=== PATIENT | male | born 1980 | race Caucasian/White ===

== ENCOUNTER 2019-04-07 14:31 | Outpatient (CLI) | payer OTHER, SELFPAY ==
--- NOTE | 2019-04-07 14:37 | XRR_ITS ---
PROCEDURE INFORMATION: Exam: XR Cervical Spine, 2 or 3 Views Exam date and time: 04/07/2019 2:44 PM Age: 38 years old Clinical indication: Neck pain; Additional info: Pain/cervical disc disorder w/radiculopathy of cspine region TECHNIQUE: Imaging protocol: XR of the cervical spine, 2 or 3 views. COMPARISON: No relevant prior studies available. FINDINGS: Vertebrae: Mild C5-C6 degenerative disc disease and spondylosis. Soft tissues: Normal. XR/XR cervical spine fl/ex [id number] IMPRESSION: Mild C5-C6 degenerative disc disease and spondylosis.
== END 2019-04-07 14:32 | disposition home or self-care (01) ==
PROVIDERS: Family Provider Nurse Practitioner; PCP Nurse Practitioner; Visit Provider Orthopaedic Surgery
DX: M50.10 Cervical disc disorder with radiculopathy, unspecified cervical region (principal); M47.892 Other spondylosis, cervical region
CPT/HCPCS: 72040

== ENCOUNTER → 2019-06-24 08:56 | Outpatient (BNVA) | payer OTHER, SELFPAY | PROVIDERS: Family Provider Nurse Practitioner; PCP Nurse Practitioner; Referring Provider Nurse Practitioner; Visit Provider Psychiatry & Neurology Neurology | DX: M79.601 Pain in right arm (principal); F17.220 Nicotine dependence, chewing tobacco, uncomplicated | CPT/HCPCS: 95886; 95910 ==

== ENCOUNTER 2022-11-23 11:49 | Outpatient (CLI) | payer OTHER, SELFPAY ==
[2022-11-23 12:08] VITALS: BMI 29.5
--- NOTE | 2022-11-23 12:11 | ECG_ITS ---
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 Interpretive Statements NAME OF STUDY: TREADMILL STRESS TEST INDICATION: Chest Pain, PROCEDURE: At the baseline, the patient's blood pressure was 131/90 with a heart rate of 99. The baseline electrocardiogram showed normal sinus rhythm with some nonspecific T wave changes. The patient exercised for 10 minutes on a standard [employer] protocol. Patient attained a maximum heart rate of 180 beats per minute(101% of the maximum predicted heart rate) with a blood pressure at the peak exercise of 121/60 mm Hg. The EKG at the peak exercise revealed no significant changes. Patient did not have any chest pain or any significant cardiac arrhythmias with the exercise During the recovery phase, there were no new changes. Blood pressure at the end of the recovery phase was 122/78 mm Hg with a heart rate of 109 per minute. CONCLUSION: 1. No significant EKG changes with the treadmill exercise 2. No exercise-induced chest pain or cardiac arrhythmia 3. Good exercise tolerance, attained a maximum of 13.5 METs Electronically Signed On 11-24-2022 10:32:35 CDT by Romie Christianson M.D. [email or web address]
[2022-11-23 12:46] VITALS: BP 122/79; PULSE 108
== END 2022-11-23 11:50 | disposition home or self-care (01) ==
LOC: CDL 11:50
PROVIDERS: PCP Nurse Practitioner; Visit Provider Nurse Practitioner
DX: R07.9 Chest pain, unspecified (principal)
CPT/HCPCS: 93017

== ENCOUNTER → 2024-01-15 09:36 | Outpatient (BNVA) | payer OTHER, SELFPAY | PROVIDERS: PCP Nurse Practitioner; Referring Provider Nurse Practitioner; Visit Provider Nurse Practitioner Family | DX: D48.5 Neoplasm of uncertain behavior of skin (principal); L57.0 Actinic keratosis; L56.8 Other specified acute skin changes due to ultraviolet radiation; L82.1 Other seborrheic keratosis | CPT/HCPCS: 11104; 17000; 99203 ==

== ENCOUNTER → 2024-01-25 08:45 | Outpatient (BNVA) | payer OTHER, SELFPAY | PROVIDERS: PCP Nurse Practitioner; Visit Provider Dermatology | DX: D48.5 Neoplasm of uncertain behavior of skin (principal); L21.8 Other seborrheic dermatitis | CPT/HCPCS: 11104; 99213 ==

== ENCOUNTER 2024-04-02 14:38 | Outpatient (CLI) | payer OTHER, SELFPAY ==
--- NOTE | 2024-04-02 14:43 | CT_ITS ---
WS: [id number] CT neck w con* [id number] REASON FOR EXAM: DYSPHAGIA IV CONTRAST ADMINISTERED: 100 mL of Omnipaque 350 TOTAL EXAM DLP: 227.[address] scans at [facility] use at least one of these dose optimization techniques: automat ed exposure control; mA and/or kV adjustment per patient size (includes targeted exams where dose is matched to clinical indication); or iterative reconstruction. TECHNIQUE: Multiple axial images with intravenous contrast. Coronal and sagittal reconstructions. FINDINGS: Normal thyroid gland without significant enlargement or focal lesion. Glottic and supraglottic regions are normal. Normal submandibular or sublingual and parotid salivary glands. Normal epiglottis. No mass or adenopathy. Mild degenerative spondylosis C5-C7. CT/CT neck w con* [id number] IMPRESSION: No significant abnormality.
[2024-04-02] MEDS: iohexol 350 mg/mL 500 mL Btl (per mL) IV (15:24)
== END 2024-04-02 14:39 | disposition home or self-care (01) ==
LOC: RAD 14:39
PROVIDERS: PCP Nurse Practitioner; Visit Provider Otolaryngology
DX: R13.14 Dysphagia, pharyngoesophageal phase (principal); K21.9 Gastro-esophageal reflux disease without esophagitis; R09.89 Other specified symptoms and signs involving the circulatory and respiratory systems; M47.892 Other spondylosis, cervical region
CPT/HCPCS: 70491

== ENCOUNTER 2024-04-14 09:03 | Outpatient (CLI) | payer OTHER, SELFPAY ==
--- NOTE | 2024-04-14 09:05 | FL_ITS ---
WS: [id number] Exam: FL barium swallow [id number] Date/Time of Exam: 04/14/2024 9:09 AM Reason For Exam: DYSPHAGIA Fluoroscopy time: 1min 14.458001nmq minutes # of spot films: Oropharyngeal phase of swallowing was normal. No indication of esophageal stricture or mass. Normal e sophageal motility. The esophagus is not displaced. No gastroesophageal reflux or hiatal hernia noted . FL/FL barium swallow [id number] IMPRESSION: 1. Negative esophagram.
== END 2024-04-14 09:04 | disposition home or self-care (01) ==
LOC: RAD 09:03
PROVIDERS: PCP Nurse Practitioner; Visit Provider Otolaryngology
DX: R13.14 Dysphagia, pharyngoesophageal phase (principal); K21.9 Gastro-esophageal reflux disease without esophagitis; R09.89 Other specified symptoms and signs involving the circulatory and respiratory systems
CPT/HCPCS: 74220

== ENCOUNTER 2024-11-04 12:08 | Emergency (ER) | payer OTHER, SELFPAY ==
--- OUTSIDE RECORDS SUMMARY | 2023-11-15 08:00 | XMS_ITS | Encounter Summary ---
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 Date/Time Encounter Type Encounter Description Reason Provider Source Nov 15, 2023 01:00 PM Outpatient Encounter PRIMARY CARE/MEDICINE ICD-10-CM Z00.00 Encntr for general adult medical exam w/o abnormal findings HENRIETTA SEALS Encounter Template Text not used by NH Assessments - Encounter Diagnoses This section includes the primary and secondary diagnoses documented for the Encounter. Date/Time Primary/Secondary Diagnosis Diagnosis Name Provider Source Nov 15, 2023 07:07 PM PRIMARY Encntr for general adult medical exam w/o abnormal findings KRYSTIN SEALS [facility] Nov 15, 2023 07:07 PM SECONDARY Ankylosing spondylitis of multiple sites in spine [facility] Nov 15, 2023 07:07 PM SECONDARY Gastro-esophageal reflux disease without esophagitis [facility] Nov 15, 2023 07:07 PM SECONDARY Obstructive sleep apnea (adult) (pediatric) [facility]RYSTIN SE[facility] Nov 15, 2023 07:07 PM SECONDARY Vitamin D deficiency, unspecified KRYSTIN SEALS [facility] Plan of Treatment: Future Appointments (+ 6 months) and Future Tests (+/- 45 days) The Plan of Treatment section includes future care activities for the patient from all [facility]. This section includes future appointments and future orders which are active, pending or scheduled. Future Appointments This section includes appointments that were scheduled to occur 6 months from the date of the Encounter, up to a maximum of 20 appointments. The data comes from all NH treatment facilities. Appointment Date/Time Appointment Type Appointme nt Facility Name Jan 15, 2024 10:00 AM AMBULATORY - MEDICINE [facility] [facility] [facility] Feb 27, 2024 11:15 AM AMBULATORY MEDICINE [facility] May 14, 2024 09:30 AM [facility] Lab Results: +/- 30 days of the encounter This section includes the Chemistry and Hematology Lab Results on record with NH for the patient. Radiology Reports and Pathology Reports are provided separately, in subsequent sections. Lab Results This section contains the Chemistry/Hematology Results that were resulted 30 days before or 30 daysafter the date of the Encounter. Date/Time Source Result Type Result - Unit Interpretation Reference Range Specimen Type Comment Nov 15, 2023 02:04 PM [facility] TSH (MA-PB) SERUM Specimen Type: SERUM No comment entered. Ordering Provider: RICH SEALS Report Released Date/Time: Nov 13, 2023 03:48 PM Reporting Lab: [facility] [facility] [address] [place] [address] Performing Lab: [facility] [facility] [address] [place] [address] TSH 1.233 u[IU]/mL 0.47-5 Nov 15, 2023 02:04 PM [facility] VITAMIN D, 25-HYDROXY SERUM Specimen Type: SE RUM No comment entered. Ordering Provider: RICH SEALS Report Released Date/Time: Nov 13, 2023 03:48 PM Reporting Lab: [facility] [facility] [address] [place] [address] Performing Lab: [facility] [facility] [address] [place] [address] VITAMIN D, 25-HYDROXY 15.6 ng/mL L 30-96 Nov 15, 2023 02:04 PM [facility] URINALYSIS (STL-PB) URINE Specimen Type: URIN E No comment entered. Ordering Provider: RICH SEALS Report Released Date/Time: Nov 13, 2023 03:48 PM Reporting Lab: [facility] [facility] [address] [place] [address] Performing Lab: [facility] [facility] [address] [place] [address] URINE COLOR Colorless Yellow U.BILIRUBIN NEGATIVE mg/dL Negative U.PH 6.0 5.0-8.0 APPEARANCE CLEAR Clear U.NITRITE NEGATIVE mg/dL Negative URN.GLUCOSE NORMAL mg/dL Negative URN.PROTEIN NEGATIVE mg/dL Negative-20 URN.UROBILINOGEN NORMAL mg/dL Normal URN.BLOOD NEGATIVE mg/dL Negative-Trace URN.KETONES NEGATIVE mg/dL Negative-Trac e URN.LEUK.EST. NEGATIVE Negative-Trace URN.SPECIFIC GRAVITY 1.011 1.005-1.029 Nov 15, 2023 02:04 PM [facility] HGA1C BLOOD Specimen Type: BLOOD No comment entered. Ordering Provider: RICH SEALS Report Released Date/Time: Nov 13, 2023 03:48 PM Reporting Lab: [facility] [facility] [address] [place] [address] Performing Lab: [facility] [facility] [address] [place] [address] HGA1C 5.5 4.0-6.0 Nov 15, 2023 02:04 PM [facility] CBC BLOOD Specimen Type: BLOOD No comment entered. Ordering Provider: RICH SEALS Report Released Date/Time: Nov 13, 2023 03:48 PM Reporting Lab: [facility] [facility] [address] [place] [address] Performing Lab: [facility] [facility] [address] [place] [id number] WBC 8.1 10*3/uL 3.6-11.2 RBC 4.81 10*6/uL 4.10-5.70 HGB 15.2 g/dL 13.1-16.8 HCT 44.3 38.2-48.4 MCV 92.1 fL 80.0-100.0 MCH 31.6 pg 27.0-34.0 MCHC 34.3 g/dL 33.0-36.0 PLT 224 10*3/uL 150-400 MPV 11.2 fL 7.5-11.2 RDW 12.8 11.8-15.1 LYMPHOCYTES, AUTO % 22.3 MONOCYTES, AUTO % 7.2 NEUTROPHILS, AUTO % 68.5 EOSINOPHILS, AUTO % 0.9 BASOPHILS, AUTO % 0.6 LYMPHOCYTES, ABSOLUTE 1.81 10*3/uL 0.77- 4.50 MONOCYTES, ABSOLUTE 0.58 10*3/uL 0.19-0. 8 NEUTROPHILS, ABSOLUTE 5.55 10*3/uL 2.10- 8.00 EOSINOPHILS, ABSOLUTE 0.07 10*3/uL 0.00- 0.60 BASOPHILS, ABSOLUTE 0.05 10*3/uL 0.00-0. 20 IMMATURE GRANS, AUTO % 0.5 IMMATURE GRANS, AUTO ABS 0.04 10*3/uL 0. 00-0.05 Nov 15, 2023 02:04 PM [facility] CHOLESTEROL PANEL (PB) PLASMA Specimen Type: P LASMA No comment entered. Ordering Provider: RICH SEALS Report Released Date/Time: Nov 13, 2023 03:48 PM Reporting Lab: [facility] [facility] [address] [place] [address] Performing Lab: [facility] [facility] [address] [facility] [facility] [address] CHOLESTEROL 264 mg/dL H 0-200 TRIGLYCERIDE 122 mg/dL 0-150 CALCULATED LDL 186.6 mg/dL HDL(New) 53.0 mg/dL H >40 HDL % OF TOTAL CHOLESTEROL (PB) 20.1 >25 Nov 15, 2023 02:04 PM [facility] PROST. SPECIFIC AG.(PB-STL) SERUM Specimen Ty pe: SERUM No comment entered. Ordering Provider: RICH SEALS Report Released Date/Time: Nov 13, 2023 03:48 PM Reporting Lab: [facility] [facility] [address] [place] [address] Performing Lab: [facility] [facility] [address] [place] [address] PROST. SPECIFIC AG.(PB-STL) 0.94 ng/mL 0 -4 Nov 15, 2023 02:04 PM [facility] COMPREHENSIVE METABOLIC PANEL PLASMA Specimen Type: PLASMA No comment entered. Ordering Provider: RICH SEALS Report Released Date/Time: Nov 13, 2023 03:48 PM Reporting Lab: [facility] [address] [place] [address] Performing Lab: [facility] [address] [address] CREATININE 0.95 mg/dL 0.7-1.3 UREA NITROGEN 10 mg/dL 9-25 GLUCOSE 98 mg/dL 72-99 SODIUM 136 meq/L 136-145 POTASSIUM 4.1 meq/L 3.5-5 CHLORIDE 103 meq/L 98-107 CARBON DIOXIDE 24 meq/L 22-31 CALCIUM 9.2 mg/dL 8.4-10.4 PROTEIN 7.7 g/dL 6-8.6 ALBUMIN 4.8 g/dL 3.4-5 TOTAL BILIRUBIN 0.5 mg/dL 0.2-1.2 ALKALINE PHOSPHATASE 47 U/L 40-150 AST/SGOT 38 U/L H 5-34 ALT/SGPT 73 U/L H 8-40 EGFR (CKD-EPI 2020) 102 Vital Signs: All taken on the encounter date This section contains inpatient and outpatient Vital Signs collected on the date of the Encounter. Date/Time Temperature Pulse Blood Pressure Respiratory Rate SP02 Pain Height Weight Body Mass Index Source Nov 15, 2023 01:09 PM 142/93 [facility] Nov 15, 2023 01:09 PM 98.2 84 149/92 18 99 0 68 230 35 [facility] Social History: Smoking Status (Most current) and Tobacco Use (All prior to encounter date) This section includes the most current, and the historical, smoking and tobacco- related health factors from the NH facility where the Encounter took place. Current Smoking Status This section includes the most current smoking, or tobacco-related health factor, from the NH facility where the Encounter took place. Date/Time Current Smoking Status Comment Edmundo pinto Nov 15, 2023 01:00 PM VA-TOBACCO USER EVERY DAY [facility] Tobacco Use History This section includes a history of the smoking, or tobacco-related health factors, that were collected on or before the date of the Encounter. The data comes from the NH facility where the Encounter took place. 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 [facility] Nov 15, 2023 01:00 PM VA-TOBACCO USE MED NO [facility] Nov 15, 2023 01:00 PM VA-TOBACCO USE WI 30 MIN OF WAKE UP [facility] Nov 15, 2023 01:00 PM VA-TOBACCO USER EVERY DAY [facility] Nov 14, 2022 01:31 PM VA-TOBACCO USE 30 YEARS OR MORE [facility] Nov 14, 2022 01:31 PM VA-TOBACCO USE ADVICE [facility] Nov 14, 2022 01:31 PM 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 [facility] Nov 14, 2022 01:31 PM VA-TOBACCO USE MED NO [facility] Nov 14, 2022 01:31 PM VA-TOBACCO USE WI 30 MIN OF WAKE UP [facility] Nov 14, 2022 01:31 PM VA-TOBACCO USER EVERY DAY [facility] [place] [facility] Jun 04, 2018 03:27 PM VA-TOBACCO DOESNT USE WI 30 MIN WAKEUP [facility] Jun 04, 2018 03:27 PM VA-TOBACCO USE 5 TO 15 YEARS [facility] Jun 04, 2018 03:27 PM VA-TOBACCO USE ADVICE [facility] Jun 04, 2018 03:27 PM 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 Date/Time Encounter Note(s) Provider Source Nov 15, 2023 01:42 PM PRIMARY CARE PROGR ESS NOTE: LOCAL TITLE: PRIMARY CARE CLINIC PROGRESS NOTE PB STANDARD TITLE: PRIMARY CARE PROGRESS NOTE DATE OF NOTE: NOV 15, 2023@13:42 ENTRY DATE: NOV 15, 2023@13:42:44 AUTHOR: [facility] SEALS COSIGNER: URGENCY: STATUS: COMPLETED PROVIDER ASSESSMENT DATE & TIME:Oct@13:42 CHIEF COMPLAINT: Annual physical and labs. HISTORY OF PRESENT ILLNESS: James is being seen for his annual physical and labs. James was recently seen by ENT and did a swallow study. James states he has follow up with him regarding this. James was changed to pantoprazole and has a prescription for this. James used to take methotrexate for his joint pain and stopped it related to side effects. He states a low carb diet helped more with his than anything. He is contemplating starting this diet back. James has a cyst on the back of his right scalp he would like to see dermatology regarding having it removed. James is slightly hypertensive in office but states it is normal at home. He denies any home needs. 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: 1) Obstructive sleep apnea 2) Ankylosing spondylitis 3) Arthritis of facet joint of cervical spine 4) Obesity ([facility] [id number]) 5) Headache ([facility] [id number]) 6) GERD - Gastro-Esophageal Reflux Disease ([facility] [id number]) 7) Tobacco User ([facility] [id number]) 8) Vitamin D Deficiency ([facility] [id number]) 9) Exposure to potentially hazardous substance Active Outpatient Medications (including Supplies): Active Outpatient Medications Status 1) FLUTICASONE PROP 50MCG 120D NASAL INHL INSTILL 2 ACTIVE SPRAYS IN NOSTRIL(S) ONCE A DAY FOR RHINITIS (MUST BE USED DIRECTED FOR MINIMUM OF 21 DAYS TO PROVIDE ADEQUATE BENEFITS) 2) LIDOCAINE 5% PATCH APPLY 1 PATCH TO SKIN SITE ONCE A ACTIVE DAY FOR LOCAL ANESTHESIA APPLY PATCH AND PRESS FIRMLY FOR 10-15 SECONDS. KEEP ON FOR 12 HOURS THEN REMOVE PATCH FOR 12 HOURS. 3) OMEPRAZOLE 10MG EC CAP TAKE ONE CAPSULE BY MOUTH HOLD EVERY MORNING BEFORE A MEAL FOR GASTROESOPHAGEAL REFLUX DISEASE TAKE 30 MINUTES PRIOR TO FOOD. 4) OMEPRAZOLE 20MG EC CAP TAKE ONE CAPSULE BY MOUTH ACTIVE TWICE A DAY TAKE 30 MINUTES PRIOR TO FOOD. 5) SUMATRIPTAN SUCCINATE 25MG TAB TAKE ONE TABLET BY ACTIVE MOUTH ONE-TIME FOR MIGRAINE HEADACHE TAKE AT ONSET OF HEADACHE. MAY REPEAT AFTER 2 HOURS. NOT TO EXCEED 2 TABLETS IN 24 HOURS. REVIEW OF SYSTEMS: HEENT: No Headache. No blurry vision, vision loss, eye pain, red eyes, or foreign body. No runnynose, congestion, or nose bleed. No hearing loss, ringing in the ears, or vertigo. No sore throat or dental pain. RESPIRATORY: No cough, SOA, wheezing, or sputum production. CARDIOVASCULAR: No chest pain, palpitations, tachycardia, PND, or orthopnea. GI: No abdominal pain, nausea, vomiting, diarrhea, constipation, melena, or hematochezia. : No dysuria, hematuria, urinary frequency, weak stream, or post-void dribbling. MUSCULOSKELETAL:chronic joint pain. SKIN: No rash, lesions, or infection PSYCH: No Depression or Anxiety. Not suicidal. PHYSICAL ASSESSMENT: VITAL SIGNS Pulse: 84 (11/15/2023 13:09) Blood Pressure: 142/93 (11/15/2023 13:09) Respiratory Rate: 18 (11/15/2023 13:09) Temperature: 98.2 F [36.8 C] (11/15/2023 13:09) Weight: 230 lb [104.33 kg] (11/15/2023 13:09) Height: 68 in [172.7 cm] (11/15/2023 13:09) Pain: 0 (11/15/2023 13:09) HEENT:PERRL, EOMI, Fundi benign, TM's clear, Pharynx not red and without exudate, tonsils normal size. NECK: Supple, no lymhadenopathy, thyroid normal. CARDIAC: Regular rate and rhythm without murmur. No edema. RESPIRATORY: CTA, BEBS GI: Abdomen soft,with ABS, no HSM, no guarding or rebound. MUSCULOSKELETAL:No muscle or joint tenderness. FROM. SKIN: [place] without rash or lesions. 2cm diameter, soft, non-mobile cyst to right of occiptal lobe on back of scalp. NEUROLOGICAL: The [place] is alert and oriented without distress. Affect appropriate. IMPRESSION: Encounter for General Adult Medical Exam GERD-chronic Sebaceous Cyst-current Ankylosing Spondylitis-chronic Sleep Apnea-chronic PLAN: Continue current medications. Discussed diet and exercise. Will refer to Dermatology. Continue to monitor blood pressure at home. Labs today. RTC in one year or sooner if needed. Patient is advised this primary care clinic has open access and he can make a same day appointment anytime a problem/concern arises. Patient further advised he can be seen on a walk-in basis as needed. Patient is provided clinic contact information. Medications reviewed and reconciled. Discussed diet and exercise as relevant to patient conditions. Treatment plan as noted above and the After Visit Summary was reviewed with [place]; opportunity provided to report concerns and ask question regarding aspects of care or treatment or services; concurrence reached and verbalized understanding. Please refer to addendum or follow up lab letter for plan of care/changes related to lab/test results not available at conclusion of appointment, if any. Discussed with patient that in the event of community imaging / testing being ordered in the future, once the imaging / testing has been completed, please notify PACT of within 1 week by a VA PACT member; this is due to intermittent lapses in notification of imaging completion within CPR[facility]. All questions answered; agrees to plan of care. Follow up as listed above, annually, and as needed. Keep all completion at outside facility if not called with results appointments. Medications Reconciled. Time spent 30 minutes. /angel/ [facility] Signed: 11/15/2023 19:06 RICH [facility]ALS [place] [facility] Nov 15, 2023 01:10 PM PRIMARY CARE NURSI NG NOTE: LOCAL TITLE: PRIMARY CARE NURSING PROGRESS NOTE (TEXT) NURSING P STANDARD TITLE: PRIMARY CARE NURSING NOTE DATE OF NOTE: NOV 15, 2023@13:10 ENTRY DATE: NOV 15, 2023@13:10:51 AUTHOR: HEIKE CAMPBELL COSIGNER: URGENCY: STATUS: COMPLETED Established Patient KAROL TRINH IS A 42 YEAR OLD MALE BEING SEEN IN CLINIC NOV 15, 2023. = = REASON FOR VISIT: Here today for his annual appt. He reports that he was recently seen by ENT who beba fung for a Swallow study. He states they told him his tonsils are not infected. Are you receiving care any where other than the [facility]? No HEALTH AND SURGICAL HISTORY: Does patient report using home oxygen? No CURRENT ACTIVE MEDICATIONS FOR REVIEW: Allergies/ADRs (Tool #5) FACILITY ALLERGY/ADR -------- [facility] No Known Allergies Med. Reconciliation (Tool #1) INCLUDED IN THIS LIST: Alphabetical list of active outpatient prescriptions dispensed from this NH (local) and dispensed from another NH or DoD facility (remote) as well as inpatient orders (local pending and active), local clinic medications, locally documented non-VA medications, and local prescriptions that have or been discontinued in the past 90 days. Non-VA Meds Last Documented On: Data not found NOTE The display of VA prescriptions dispensed from another VA or DoD facility (remote) is limited to active outpatient prescription entries matched to National Drug File at the originating site and may not include some items such as investigational drugs, compounds, etc. NOT INCLUDED IN THIS LIST: Medications self-entered by the patient into personal health records (i.e. zappit) are NOT included in this list. Non-VA medications documented outside this NH, remote inpatient orders (regardless of status) and remote clinic medications are NOT included in this list. The patient and provider must always discuss medications the patient is taking, regardless of where the medication was dispensed or obtained. OUTPT CETIRIZINE HCL 10MG TAB (Status = ) TAKE ONE TABLET BY MOUTH ONCE A DAY FOR ALLERGY SYMPTOMS Rx# [id number] Last Released: 07/25/23 Qty/Days Supply: Rx Expiration Date: 10/22/23 Refills Remainin Indication: FOR ALLERGY SYMPTOMS OUTPT FLUTICASONE PROP 50MCG 120D NASAL INHL (Status = Active) INSTILL 2 SPRAYS IN NOSTRIL(S) ONCE A DAY FOR RHINITIS (MUST BE USED DIRECTED FOR MINIMUM OF 21 DAYS TO PROVIDE ADEQUATE BENEFITS) Rx# [id number] Last Released: 07/27/23 Qty/Days Supply: Rx Expiration Date: 07/24/24 Refills Remainin Indication: FOR RHINITIS OUTPT LIDOCAINE 5% PATCH (Status = Active) APPLY 1 PATCH TO SKIN SITE ONCE A DAY FOR LOCAL ANESTHESIA APPLY PATCH AND PRESS FIRMLY FOR 10-15 SECONDS. KEEP ON FOR 12 HOURS THEN REMOVE PATCH FOR 12 HOURS. Rx# [id number] Last Released: 11/22/22 Qty/Days Supply: Rx Expiration Date: 11/16/23 Refills Remainin Indication: FOR LOCAL ANESTHESIA OUTPT OMEPRAZOLE 10MG EC CAP (Status = On Hold) TAKE ONE CAPSULE BY MOUTH EVERY MORNING BEFORE A MEAL FOR GASTROESOPHAGEAL REFLUX DISEASE TAKE 30 MINUTES PRIOR TO FOOD. Rx# [id number] Last Released: 11/17/22 Qty/Days Supply: Rx Expiration Date: 11/16/23 Refills Remainin Indication: FOR GASTROESOPHAGEAL REFLUX DISEASE OUTPT OMEPRAZOLE 20MG EC CAP (Status = Active) TAKE ONE CAPSULE BY MOUTH TWICE A DAY TAKE 30 MINUTES PRIOR TO FOOD. Rx# [id number] Last Released: 10/27/23 Qty/Days Supply: Rx Expiration Date: 10/26/24 Refills Remainin OUTPT SUMATRIPTAN SUCCINATE 25MG TAB (Status = Active) TAKE ONE TABLET BY MOUTH ONE-TIME FOR MIGRAINE HEADACHE TAKE AT ONSET OF HEADACHE. MAY REPEAT AFTER 2 HOURS. NOT TO EXCEED 2 TABLETS IN 24 HOURS. Rx# [id number] Last Released: 11/17/22 Qty/Days Supply: Rx Expiration Date: 11/16/23 Refills Remainin Indication: FOR MIGRAINE HEADACHE SUPPLIES PHARMACY TERMS AND POSSIBLE PATIENT ACTIONS INPT = NH inpatient order IV = NH intravenous medication OUTPT = NH outpatient prescription PHARMACY POSSIBLE PATIENT TERMS EXPLANATION ACTIONS -------- ---- ACTIVE A prescription that can be If you have refills, filled at the local NH pharmacy. you may request a refill of this prescription from your NH pharmacy. CLINIC A medication you received during If you have questions a visit to a NH clinic or about this medication emergency department. contact your NH healthcare team. DISCONTINUED A prescription your provider has Contact your VA stopped. It is no longer healthcare team if you available to be sent to you or need more of this picked up at the NH pharmacy medication. window. A prescription which is too old Contact your VA to fill. This does not refer to healthcare team if you the expiration date of the need more of this medication in the container. medication. NON-VA A medication that came from If this medication someplace other than a VA information is pharmacy. This may be a incorrect or out of prescription from either the VA date, please tell your or non VA providers that was VA healthcare team. filled outside the VA. Or, it may be an htco-efi-usyjprc (OTC), herbal, dietary supplements or sample medication. ON HOLD An active prescription that will Contact your VA not be filled until pharmacy pharmacy when you need resolves the issue. more of this medication. PARKED An active prescription that will Contact your VA not be filled until the patient pharmacy when you need requests it. this medication. PENDING This prescription order has been If you have been sent to the pharmacy for review instructed to start and is not ready yet. this medication now, contact your VA pharmacy. SUSPENDED An active prescription that is Contact your VA not scheduled to be filled yet. pharmacy if you need You should receive it before this medication now. you run out. Patient reports taking medications as ordered. IS PATIENT TAKING ANY OVER THE COUNTER MEDICATIONS, SUCH VITAMINS OR HERBAL SUPPLEMENTS, INCLUDING ANY MEDICATIONS PRESCRIBED BY ANOTHER PHYSICIAN? No ALLERGIES/ADVERSE REACTIONS: Patient has answered NKA Does patient have any new allergies to report since last visit? NO VITALS: TEMPERATURE: 98.2 F [36.8 C] (11/15/2023 13:09) BP: 142/93 (11/15/2023 13:09) RESP: 18 (11/15/2023 13:09) PULSE: 84 (11/15/2023 13:09) HT: 68 in [172.7 cm] (11/15/2023 13:09) WT: 230 lb [104.33 kg] (11/15/2023 13:09) BMI: 35.0 PAIN ASSESSMENT: (Most Recent Pain Score in Vitals Package: 0 (11/15/2023 13:09) ) The patient indicated that they and their close contacts have not traveled outside of the [place] in the past 21 days. The patient reports the following symptoms: No symptoms present The patient is not immunocompromised. The patient does not report having a history of Multi Drug Resistant Organism (MDRO) within the last five years. The patient does not report having been exposed to measles, chickenpox, or zoster in last 30 days. Patient reports no pain at this visit. Pain Score = 0. STRESS: Thank you for your service. Now let us serve you. At the [facility], we strive to provide you with exceptional health care that improves your health and well-being. Are you feeling sad, empty, or depressed? No Do you need to talk about things in your life that worry you or cause you stress? No Do you need to talk about personal problems, family problems, alcohol use, drug use, or mental or emotional illness? No SUICIDE SCREENING: The patient was asked, Over the past two weeks, how often have you been bothered by thoughts that you would be better off or of hurting yourself in some way? Not At All SPIRITUAL ASSESSMENT: Are there roman catholic practices or spiritual concerns you want the supervisor cereal, your physician, and other health care team members to immediately know about? No Patient advised to call the clinic for any concerns, questions, or symptoms. Patient and/or caregiver verbalized understanding of plan of care. Suicide Screen: C-SSRS Screening [place]-Suicide Severity Rating Scale (C-SSRS Screener) 1. Over the past month, have you wished you were or wished you could go to sleep and not wake up? No 2. Over the past month, have you had any actual thoughts of killing yourself? No 3. Over the past month, have you been thinking about how you might do this? Response not required due to responses to other questions. 4. Over the past month, have you had these thoughts and had some intention of acting on them? Response not required due to responses to other questions. 5. Over the past month, have you started to work out or worked out the details of how to kill yourself? Response not required due to responses to other questions. 6. If yes, at any time in the past month did you intend to carry out this plan? Response not required due to responses to other questions. 7. In your lifetime, have you ever done anything, started to do anything, or prepared to do anything to end your life (for example, collected pills, obtained a gun, gave away valuables, went to the roof but didn't jump)? No 8. If YES, was this within the past 3 months? Response not required due to responses to other questions. Sexual Orientation: The patient thinks of their sexual orientation as: Straight or Heterosexual RHS Screen: RHS Screen Session Format: Face to Face Environmental Check Upon inquiry, the individual reports that the environment is safe to proceed. Informed Consent to Screen and Document The individual consents to proceed with screening. The individual consents to documentation of responses. PRIMARY SCREEN: In the past 12 months, how often did a current or former intimate partner (e.g., boyfriend, girlfriend, , , sexual partner): 1. Scream or curse at you Never 2. Insult or talk down to you Never 3. Threaten you with harm Never 4. Physically hurt you Never 5. Force or pressure you to have sexual contact against your will, or when you were unable to say no Never The HITS tool (items 1-4 above) is [place] copyright protected by Oren Aquino MD, and the user has full rights to use it throughout the [place] system. PRIMARY SCREEN RESULT: The Primary Screen is NEGATIVE. The individual answered never to all forms of IPV above (i.e., answered never to all 5 items) The individual accepts education and/or resources: No EDUCATION: Other: na COVID-19 Immunization: Refused Moderna Monovalent COVID-19 vaccine Immunization: COVID-19 (MODERNA), MRNA, LNP-S, PF, 50 MCG/0.5 ML (AGES 12+ YEARS) Refusal Reason: PATIENT DECISION Patient refuses all immunization(s) in the COVID-19 group Date Documented: 11/15/23 13:16 Alcohol Use Screen (AUDIT-C): Alcohol Screen: SCREEN FOR ALCOHOL (AUDIT-C) An alcohol screening test (AUDIT-C) was negative (score=0). 1. How often did you have a drink containing alcohol in the past year? Consider a drink to be a 12 ounce can or bottle of regular beer, 8 ounces of malt liquor, a 5 ounce glass of table wine, or a 1.5 ounce shot of liquor (like scotch, gin, or vodka). Never 2. How many drinks containing alcohol did you have on a typical day when you were drinking in the past year? Response not required due to responses to other questions. 3. How often did you have six or more drinks on one occasion in the past year? Response not required due to responses to other questions. Depression Screening: Perform PHQ-2 A PHQ-2 screen was performed. The score was 0 which is a negative screen for depression. Over the past two weeks, how often have you been bothered by the following problems? 1. Little interest or pleasure in doing things Not at all 2. Feeling down, depressed, or hopeless Not at all Tobacco Use Screening: The patient uses tobacco every day. The patient uses tobacco within 30 minutes of waking up. The patient has been smoking or using tobacco for more than fifteen years and less than thirty years. Patient was advised to quit smoking and/or using tobacco. Discussion with patient included: - Quitting smoking or tobacco use is one of the most important things you can do to protect and improve your health and [facility] has the resources to support you. - Set a quit date when you are ready to quit. - Get support from your family and friends. - Review any past quit attempts- What helped? What didn't? - On the day you plan to quit, get rid of all cigarettes and tobacco products from your home, car or work. - Using a combination of behavioral counseling or other support strategies and FDA-approved cessation medications is the most effective way to ensure success in quitting. Patient was offered Behavioral Counseling and other support strategies to assist with quitting. Discussion with patient included: - Behavioral counseling or other support strategies greatly increases your chances of successfully quitting smoking or tobacco use by helping you develop a quit plan and providing support and other strategies to make behavioral changes to help you quit. - [facility] has a number of behavioral counseling options to help you with quitting, including: * Provide information about the facility smoking or tobacco use treatment options or clinics * [facility]'s national quitline, 6-121-LUCU-VET, with counseling available Sunday-Sunday The patient was not interested in receiving additional information about how to use the treatment options discussed. Patient was offered FDA-approved cessation medications. Discussion with patient included: - Medications for Nicotine replacement therapy such as the patch, gum or lozenge, and other medications such as varenicline or bupropion, can play an important role in the initial weeks and months after you quit smoking or tobacco use. - Medications help with cravings and withdrawal symptoms and they greatly increase your chances of successfully quitting. The patient was not interested in a prescription for tobacco cessation medications. Influenza Immunization: No influenza vaccination was received during the recent influenza season. PTSD Screening: PC-PTSD-5 A PTSD screening test (PC-PTSD-5) was negative (score=0). IN THE PAST MONTH, have you ever had any experience that was so frightening, horrible or traumatic. For example: A serious accident or fire a physical or sexual assault or abuse An earthquake or flood A war Seeing someone be killed or seriously injured Having a loved one through homicide or suicide 1. Have you ever experienced this kind of event? YES 2. Had nightmares about the event(s) or thought about the event(s) when you did not want to? NO 3. Tried hard not to think about the event(s) or went out of your way to avoid situations that reminded you of the event(s)? NO 4. Been constantly on guard, watchful, or easily startled? NO 5. [place] numb or detached from people, activities, or your surroundings? NO 6. [place] guilty or unable to stop blaming yourself or others for the event(s) or any problems the event(s) may have caused? NO Hepatitis C Testing: Patient declines HCV lab test. Advanced Directive Screen/Flagger: ADVANCE DIRECTIVE SCREENING: I asked if the patient has an advance directive, and determined that: Patient has an Advance Directive. Patient does not wish to make any changes to the Advance Directive at this time. ADVANCE DIRECTIVE NOTIFICATION I provided the patient with written notification about advance directives. Level of understanding: Pneumococcal Conjugate Vaccine (PCV15/PCV20): Refuses PCV vaccine Immunization: PNEUMOCOCCAL CONJUGATE, UNSPECIFIED FORMULATION Refusal Reason: PATIENT DECISION Patient refuses all immunization(s) in the PneumoPCV group Date Documented: 11/15/23 13:22 Pain Assessment: - PAIN ASSESSMENT: .. Patient reports no pain at this visit. Pain Score = 0. Patient's self identified pain goal: 0 VVC DIGITAL DIVIDE CAPABILITY REMINDER: Patient is not interested in VVC at this time. 'S RIGHT TO DECLINE STATEMENT understands they have the right to decline the use of Telehealth Technology at any time without adverse affects on their continued access to healthcare. [facility] - PHP MAP: PERSONAL HEALTH PLAN INVENTORY & MAP [place] Response: family /es/ HEIKE CAMPBELL LPN Signed: 11/15/2023 13:28 [facility]AMPBELL [facility]
--- OUTSIDE RECORDS SUMMARY | 2024-02-27 06:15 | XMS_ITS | Encounter Summary ---
Author Name [facility] [place] [facility] [place] [facility] [place] Address [address] [place] [id number] Care Team Providers Care Apron Operator Name Role Phone KARLA DIEHL Primary Care Provider RICH Fong Primary Care Provider Unavail able Selected Encounter This section includes the information on record at [place] for the Encounter. Date/Time Encounter Type Encounter Description Reason Provider Source Feb 27, 2024 11:15 AM OFF/OP EST JULY X REQ PHY/QHP PRIMARY CARE/MEDICINE ICD-10-CM R07.82 Intercostal pain CHERYL SCHULTZ Chris Encounter Template Text not used by [place] Assessments - Encounter Diagnoses This section includes the primary and secondary diagnoses documented for the Encounter. Date/Time Primary/Secondary Diagnosis Diagnosis Name Provider Source Feb 27, 2024 12:12 PM PRIMARY Intercostal pain PIYUSH SCHULTZ [facility] Plan of Treatment: Future Appointments (+ 6 months) and Future Tests (+/- 45 days) The Plan of Treatment section includes future care activities for the patient from all [place] treatment[place]ilities. This section includes future appointments and future orders which are active, pending or scheduled. Future Appointments This section includes appointments that were scheduled to occur 6 months from the date of the Encounter, up to a maximum of 20 appointments. The data comes from all [place] treatment facilities. Appointment Date/Time Appointment Type Appointme nt Facility Name May 14, 2024 09:30 AM AMBULATORY - MEDICINE [facility] Aug 22, 2024 01:15 PM AMBULATORY - MEDICINE [facility] Aug 22, 2024 02:45 PM AMBULATORY - MEDICINE [facility] Aug 27, 2024 11:45 AM AMBULATORY - MEDICINE [facility] Aug 27, 2024 12:15 PM AMBULATORY - MEDICINE [facility] Vital Signs: All taken on the encounter date This section contains inpatient and outpatient Vital Signs collected on the date of the Encounter. Date/Time Temperature Pulse Blood Pressure Respiratory Rate SP02 Pain Height Weight Body Mass Index Source Feb 27, 2024 11:19 AM 97.4 86 150/97 18 98 230.1 35 [facility] Social History: Smoking Status (Most current) and Tobacco Use (All prior to encounter date) This section includes the most current, and the historical, smoking and tobacco- related health factors from the [place] facility where the Encounter took place. Current Smoking Status This section includes the most current smoking, or tobacco-related health factor, from the [place] facility where the Encounter took place. Date/Time Current Smoking Status Comment Facil ity Nov 15, 2023 01:00 PM VA-TOBACCO USER EVERY DAY [facility] Tobacco Use History This section includes a history of the smoking, or tobacco-related health factors, that were collected on or before the date of the Encounter. The data comes from the [place] facility where the Encounter took place. Date/Time Smoking Status/Tobacco Use Comment F acility Nov 15, 2023 01:00 PM VA-TOBACCO USE ADVICE [facility] Nov 15, 2023 01:00 PM VA-TOBACCO USE SALON PROFESSIONAL NO [facility] Nov 15, 2023 01:00 PM VA-TOBACCO USE MED NO [facility] Nov 15, 2023 01:00 PM VA-TOBACCO USE WI 30 MIN OF WAKE UP [facility] Nov 15, 2023 01:00 PM VA-TOBACCO USER EVERY DAY [facility] Nov 14, 2022 01:31 PM VA-TOBACCO USE 30 YEARS OR MORE [facility] Nov 14, 2022 01:31 PM VA-TOBACCO USE ADVICE [facility] Nov 14, 2022 01:31 PM VA-TOBACCO USE SALON PROFESSIONAL NO [facility] Nov 14, 2022 01:31 PM VA-TOBACCO USE MED NO [facility] Nov 14, 2022 01:31 PM VA-TOBACCO USE WI 30 MIN OF WAKE UP [facility] Nov 14, 2022 01:31 PM VA-TOBACCO USER EVERY DAY [facility] Jun 04, 2018 03:27 PM VA-TOBACCO DOESNT USE WI 30 MIN WAKEUP [facility] Jun 04, 2018 03:27 PM VA-TOBACCO USE 5 TO 15 YEARS [facility] Jun 04, 2018 03:27 PM VA-TOBACCO USE ADVICE [facility] Jun 04, 2018 03:27 PM VA-TOBACCO USE SALON PROFESSIONAL NO [facility] Jun 04, 2018 03:27 PM VA-TOBACCO USE MED NO [facility] Jun 04, 2018 03:27 PM VA-TOBACCO USER SOME DAYS [facility] Radiology Reports: +/- 30 days of the encounter Radiology Reports For cases when an order for radiology services may have been completed prior to the date of the Encounter, the report list includes the Radiology Reports that were completed up to 30 days before dateof the Encounter. For cases when an order for radiology services may have been completed after the date of the Encounter, the report list also includes the Radiology Reports that were completed up to30 days after date of the Encounter. The data comes from all [place] treatment facilities. Date/Time Radiology Report Provider Source Feb 27, 2024 11:54 AM RIBS,LEFT+CHEST 3+ VIEWS: KAROL TRINH [id number] -1980 M Exm Date: FEB 27, 2024@11:54 Req Phys: RICH SEALS Loc: PB-ADRAINA PACT FOXMELONIE MARVIN (Req'g Img Loc: PB-XRAY [facility] Service: [place] [address] (Case [id number] COMPLETE) RIBS,LEFT+CHEST 3+VIEWS (RAD Detailed) CPT:25981 Proc Modifiers : LEFT Reason for Study: Left rib pain Clinical History: Report Status: Verified Date Reported: FEB 27, 2024 Date Verified: FEB 27, 2024 City Detective E-Sig: Report: Multiple views of the chest and left ribs reveal no fracture or other acute osseous abnormality. There is no infiltrate, effusion, contusion, pneumothorax or other acute intrathoracic process. Heart size is normal. Impression: No acute process Primary Interpreting Staff: ESTHER SUAZO, RADIOLOGIST (City Detective, no e-sig) /ESTHER Dhaliwal [facility] Encounter Notes: All associated encounter notes This section contains the clinical notes associated to the Encounter. Date/Time Encounter Note(s) Provider Source Feb 27, 2024 11:20 AM NURSING PROGRESS N OTE: LOCAL TITLE: NURSING NOTE PB STANDARD TITLE: NURSING PROGRESS NOTE DATE OF NOTE: FEB 27, 2024@11:20 ENTRY DATE: FEB 27, 2024@11:20:38 AUTHOR: KIARA SCHULTZ EXP COSIGNER: URGENCY: STATUS: COMPLETED This is a 43 year old MALE with known Allergies as noted: Patient has answered NKA C/C: reported to the clinic for left rib pain S: Spencer stated that below his left nipple he has a sharp/aching pain that comes and does. Spencer stated that sometimes setting a certain way hurts it. stated that riding in a car makes it hurt sometimes. stated that he has not had N/V. stated that he noticed the pain 4 days ago and it has gotten worse in the past two days. Spencer stated that he rates pain 7 out of 10. On the following Active Medications: Active Outpatient Medications (including Supplies): Active Outpatient Medications Status 1) FLUTICASONE PROP 50MCG 120D NASAL INHL INSTILL 2 ACTIVE SPRAYS IN NOSTRIL(S) ONCE A DAY FOR RHINITIS (MUST BE USED DIRECTED FOR MINIMUM OF 21 DAYS TO PROVIDE ADEQUATE BENEFITS) 2) OMEPRAZOLE 20MG EC CAP TAKE ONE CAPSULE BY MOUTH ACTIVE TWICE A DAY TAKE 30 MINUTES PRIOR TO FOOD. O: ambulated into the clinic without assistance. Alert and oriented x4. Unlabored breathing. No bruising or deformity noted to the chest. Spencer grimaced upon palpation of left anterior rib. A/P: Reviewed with Provider. EKG ordered. Left Rib Xray ordered. Provider advised that she will recommends Aleve for inflammation and she will provide with a hand written script for Flexeril. advised that the muscle relaxer can cause drowsiness and not to operate heavy machinery or drive until he knows how the medication affects him. voiced understanding. advised that he will be contacted with Xray results. advised if ribs are fractured to ensure that he is taking deep breaths to avoid pneumonia and tht the fractured rib could take up to 6 weeks to heal. voiced understanding. Spencer escorted to the lobby in stable condition. RTC: as needed /agnel/ Kiara Schultz RN [place] GARRISON, [facility] Signed: 02/27/2024 12:12 Receipt Acknowledged By: 02/27/2024 15:24 /angel/ DENNIS Good-FILIBERTO [place] bush JEANNIE RENEE [facility]
--- OUTSIDE RECORDS SUMMARY | 2024-02-27 06:24 | XMS_ITS | Encounter Summary ---
Author Name [facility] [place] Organization [facility] [place] Address [address] [place] [address] Care Team Providers Care Batch Records Clerk Name Role Phone KARLA DIEHL Primary Care Provider RICH Fong Primary Care Provider Unavail able Selected Encounter This section includes the information on record at [place] for the Encounter. Date/Time Encounter Type Encounter Description Reason Pro vider Source Feb 27, 2024 11:24 AM Outpatient Encounter PRIMARY CARE/MEDICINE IHE Encounter Template Text not used by [place] Plan of Treatment: Future Appointments (+ 6 months) and Future Tests (+/- 45 days) The Plan of Treatment section includes future care activities for the patient from all [place] treatmentfacilities. This section includes future appointments and future orders which are active, pending or scheduled. Future Appointments This section includes appointments that were scheduled to occur 6 months from the date of the Encounter, up to a maximum of 20 appointments. The data comes from all [place] treatment facilities. Appointment Date/Time Appointment Type Appointme nt Facility Name May 14, 2024 09:30 AM AMBULATORY - MEDICINE [facility] Aug 22, 2024 01:15 PM AMBULATORY - MEDICINE [facility] Aug 22, 2024 02:45 PM AMBULATORY - MEDICINE [facility] Aug 27, 2024 11:45 AM AMBULATORY - MEDICINE [facility] Aug 27, 2024 12:15 PM AMBULATORY - MEDICINE [facility] Vital Signs: All taken on the encounter date This section contains inpatient and outpatient Vital Signs collected on the date of the Encounter. Date/Time Temperature Pulse Blood Pressure Respiratory Rate SP02 Pain Height Weight Body Mass Index Source Feb 27, 2024 11:19 AM 97.4 86 150/97 18 98 230.1 35 [facility] Social History: Smoking Status (Most current) and Tobacco Use (All prior to encounter date) This section includes the most current, and the historical, smoking and tobacco- related health factors from the [place] facility where the Encounter took place. Current Smoking Status This section includes the most current smoking, or tobacco-related health factor, from the [place] facility where the Encounter took place. Date/Time Current Smoking Status Comment Facil ity Nov 15, 2023 01:00 PM VA-TOBACCO USER EVERY DAY [facility] Tobacco Use History This section includes a history of the smoking, or tobacco-related health factors, that were collected on or before the date of the Encounter. The data comes from the [place] facility where the Encounter took place. Date/Time Smoking Status/Tobacco Use Comment F acility Nov 15, 2023 01:00 PM VA-TOBACCO USE ADVICE [facility] Nov 15, 2023 01:00 PM VA-TOBACCO USE COFFIN MAKER NO [facility] Nov 15, 2023 01:00 PM VA-TOBACCO USE MED NO [facility] Nov 15, 2023 01:00 PM VA-TOBACCO USE WI 30 MIN OF WAKE UP [facility] Nov 15, 2023 01:00 PM VA-TOBACCO USER EVERY DAY [facility] Nov 14, 2022 01:31 PM VA-TOBACCO USE 30 YEARS OR MORE [facility] Nov 14, 2022 01:31 PM VA-TOBACCO USE ADVICE [facility] Nov 14, 2022 01:31 PM VA-TOBACCO USE COFFIN MAKER NO [facility] Nov 14, 2022 01:31 PM VA-TOBACCO USE MED NO [facility] Nov 14, 2022 01:31 PM VA-TOBACCO USE WI 30 MIN OF WAKE UP [facility] Nov 14, 2022 01:31 PM VA-TOBACCO USER EVERY DAY [facility] Jun 04, 2018 03:27 PM VA-TOBACCO DOESNT USE WI 30 MIN WAKEUP [facility] Jun 04, 2018 03:27 PM VA-TOBACCO USE 5 TO 15 YEARS [facility] Jun 04, 2018 03:27 PM VA-TOBACCO USE ADVICE [facility] Jun 04, 2018 03:27 PM VA-TOBACCO USE COFFIN MAKER NO [facility] Jun 04, 2018 03:27 PM VA-TOBACCO USE MED NO [facility] Jun 04, 2018 03:27 PM VA-TOBACCO USER SOME DAYS [facility] Radiology Reports: +/- 30 days of the [...] the Encounter. The data comes from all [place] treatment facilities. Date/Time Radiology Report Provider Source Feb 27, 2024 11:54 AM RIBS,LEFT+CHEST 3+ VIEWS: KAROL TRINH [id number] -1980 M Exm Date: FEB 27, 2024@11:54 Req Phys: RICH SEALS Loc: PB-ADRIANA PACT JOVAN MARVIN (Req'g Img Loc: PB-XRAY [place] Service: [place] [address] (Case [id number] COMPLETE) RIBS,LEFT+CHEST 3+VIEWS (RAD Detailed) CPT:35877 Proc Modifiers : LEFT Reason for Study: Left rib pain Clinical History: Report Status: Verified Date Reported: FEB 27, 2024 Date Verified: FEB 27, 2024 Sustainability Executive Director E-Sig: Report: Multiple views of the chest and left ribs reveal no fracture or other acute osseous abnormality. There is no infiltrate, effusion, contusion, pneumothorax or other acute intrathoracic process. Heart size is normal. Impression: No acute process Primary Interpreting Staff: ESTHER SUAZO RADIOLOGIST (Sustainability Executive Director, no e-sig) /ESTHER Dhaliwal [facility] Encounter Notes: All associated encounter notes This section contains the clinical notes associated to the Encounter. Date/Time Encounter Note(s) Provider Source Feb 27, 2024 12:44 PM CARDIOLOGY NOTE: LOCAL TITLE: CP EKG PB STANDARD TITLE: CARDIOLOGY NOTE DATE OF NOTE: FEB 27, 2024@12:44:49 ENTRY DATE: FEB 27, 2024@12:44:49 AUTHOR: CLINICAL,DEVICE PRO EXP COSIGNER: URGENCY: STATUS: COMPLETED PROCEDURE SUMMARY CODE: Machine Resulted DATE/TIME PERFORMED: FEB 27, 2024@11:33:0 DOCUMENT IN VISTA IMAGING SEE FULL REPORT IN VISTA IMAGING SIGNATURE NOT REQUIRED SEE SIGNATURE IN VISTA IMAGING (MUSE EKG POP) AUTO-INSTRUMENT DIAGNOSIS Procedure: 72238 12 Lead ECG Release Status: Released Off-Line Verified Date Verified: Feb 27, 2024@12:44:46 02419.2 Ventricular Rate: 79 BPM 44289.3 Atrial Rate: 79 BPM 91283.4 P-R Interval: 160 ms 60000.5 QRS Duration: 106 ms 41924.6 Q-T Interval: 382 ms 95892 QTC Calculation(Bazett)438 ms 23026.12 Calculated P [place]: 18 degrees 26647.13 Calculated R [place]: 2 degrees 45012.14 Calculated T [place]: 64 degrees Normal sinus rhythm Normal ECG When compared with ECG of 09-NOV-2022 14:32, No significant change was found Confirmed by SOHA DRUMMOND ([id number]) on 02/27/2024 12:44:41 PM Administrative Closure: 02/27/2024 by: CLINICAL,DEVICE PROXY SERVICE CLINICAL,DEVICE PROXY SERVICE [facility]
--- OUTSIDE RECORDS SUMMARY | 2024-05-14 04:30 | XMS_ITS | Encounter Summary ---
Author Name [facility] Organization [facility] [place] [facility] [place] Address [address] [place] [id number] Care Team Providers Care Chaperon Name Role Phone KARLA DIEHL Primary Care Provider RICH Fong Primary Care Provider Unavail able Selected Encounter This section includes the information on record at [place] for the Encounter. Date/Time Encounter Type Encounter Description Reason Provider Source May 14, 2024 09:30 AM OFF/OP EST JULY X REQ PHY/QHP PRIMARY CARE/MEDICINE ICD-10-CM M79.641 Pain in right hand KRYSTIN SEALS Encounter Template Text not used by [place] Assessments - Encounter Diagnoses This section includes the primary and secondary diagnoses documented for the Encounter. Date/Time Primary/Secondary Diagnosis Diagnosis Name Provider Source May 14, 2024 11:20 AM PRIMARY Pain in right hand CUSTREDMICAELA [facility] Plan of Treatment: Future Appointments (+ 6 [...] 20 appointments. The data comes from all [place] treatment facilities. Appointment Date/Time Appointment Type Appointme nt Facility Name Aug 22, 2024 01:15 PM [facility] Aug 22, 2024 02:45 PM [facility] Aug 27, 2024 11:45 AM [facility] Aug 27, 2024 12:15 PM [facility]ORY - MEDICINE [facility] Nov 04, 2024 11:15 AM AMBULATORY - MEDICINE [facility] Vital Signs: All taken on the encounter date This section contains inpatient and outpatient Vital Signs collected on the date of the Encounter. Date/Time Temperature Pulse Blood Pressure Respiratory Rate SP02 Pain Height Weight Body Mass Index Source May 14, 2024 10:51 AM 97.8 60 122/68 [facility] Social History: Smoking Status (Most current) and Tobacco Use (All prior to encounter date) This section includes the most current, and the historical, smoking and tobacco- related health factors from the [place] facility where the Encounter took place. Current Smoking Status This section includes the most current smoking, or tobacco-related health factor, from the VA facility where the Encounter took place. Date/Time Current Smoking Status Comment Facil ity Nov 15, 2023 01:00 PM VA-TOBACCO USER EVERY DAY [facility] Tobacco Use History This section includes a history of the smoking, or tobacco-related health factors, that were collected on or before the date of the Encounter. The data comes from the [place] facility where the Encounter took place. Date/Time Smoking Status/Tobacco Use Comment F acility Nov 15, 2023 01:00 PM VA-TOBACCO USE ADVICE [facility] Nov 15, 2023 01:00 PM VA-TOBACCO USE KITCHEN HELPER NO [facility] Nov 15, 2023 01:00 PM VA-TOBACCO USE MED NO [facility] Nov 15, 2023 01:00 PM VA-TOBACCO USE WI 30 MIN OF WAKE UP [facility] Nov 15, 2023 01:00 PM VA-TOBACCO USER EVERY DAY [facility] Nov 14, 2022 01:31 PM VA-TOBACCO USE 30 YEARS OR MORE [facility] Nov 14, 2022 01:31 PM VA-TOBACCO USE ADVICE [facility] Nov 14, 2022 01:31 PM VA-TOBACCO USE KITCHEN HELPER NO [facility] Nov 14, 2022 01:31 PM VA-TOBACCO USE MED NO [facility] Nov 14, 2022 01:31 PM VA-TOBACCO USE WI 30 MIN OF WAKE UP [facility] Nov 14, 2022 01:31 PM VA-TOBACCO USER EVERY DAY [facility] Jun 04, 2018 03:27 PM VA-TOBACCO DOESNT USE WI 30 MIN WAKEUP [facility] Jun 04, 2018 03:27 PM VA-TOBACCO USE 5 TO 15 YEARS [facility] Jun 04, 2018 03:27 PM VA-TOBACCO USE ADVICE [facility] Jun 04, 2018 03:27 PM VA-TOBACCO USE KITCHEN HELPER NO [facility] Jun 04, 2018 03:27 PM VA-TOBACCO USE MED NO [facility] Jun 04, 2018 03:27 PM VA-TOBACCO USER SOME DAYS [facility] Radiology Reports: +/- 30 days of the [...] the Encounter. The data comes from all [place] treatment facilities. Date/Time Radiology Report Provider Source May 14, 2024 10:58 AM FINGER 2 OR MORE V IEWS: KAROL TRINH [id number] -1980 M Ex Date: MAY 14, 2024@10:58 Req Phys: RICH SEALS [facility] (Req'g Img Loc: PB-XRAY [facility] Service: [place] [address] (Case [id number] COMPLETE) FINGER 2 OR MORE VIEWS (RAD Detailed) CPT:48900 Proc Modifiers : RIGHT Reason for Study: Jammed finger Clinical History: right middle finger injury, pain and swelling Report Status: Verified Date Reported: MAY 14, 2024 Date Verified: MAY 14, 2024 Assistant Printer Floor Covering E-Sig: Report: EXAM: Right third finger oblique and lateral views along with AP view of the right hand. FINDINGS: There is an oblique intra-articular mildly displaced fracture involving the anterior aspect of the proximal portion of the middle phalanx of the third finger. There is no dislocation. There are very mild degenerative change. Impression: 1. Oblique intra-articular mildly displaced fracture involving the anterior aspect of the proximal portion of the middle phalanx of the right third finger. 2. Very mild degenerative changes. Primary Interpreting Staff: Karen Freeman M.D., Radiology (Assistant Printer Floor Covering, no e-sig) /KAREN FRANCIS [facility] Encounter Notes: All associated encounter notes This section contains the clinical notes associated to the Encounter. Date/Time Encounter Note(s) Provider Source May 14, 2024 12:56 PM ADDENDUM: LOCAL TITLE: Addendum STANDARD TITLE: ADDENDUM DATE OF NOTE: MAY 14, 2024@12:56:20 ENTRY DATE: MAY 14, 2024@12:56:21 AUTHOR: RICH SEALS EXP COSIGNER: URGENCY: STATUS: COMPLETED Micaela, As mentioned before his finger does have a small fracture at the tip like we discussed. Please have him continue ice, nsaids, and protect it from further injury. If it is not improved in 2 weeks or if it gets worse then we can refer him to Orthopedics. The official report is as follows: Impression: 1. Oblique intra-articular mildly displaced fracture involving the anterior aspect of the proximal portion of the middle phalanx of the right third finger. 2. Very mild degenerative changes. Thank you, /angel/ DENNIS Good-[place] Schroeder Signed: 05/14/2024 12:58 Receipt Acknowledged By: 05/14/2024 16:10 /angel/ MICAELA SO, MAXIMUS [facility] [place] === --- Original Document --- 05/14/24 NURSING NOTE PB: Blood Pressure: 122/68 Pulse: 60 Temperature: 97.8 F (36.6 C) Pulse Oximetry: 99% Active Outpatient Medications: Active Outpatient Medications (including Supplies): Active Outpatient Medications Status === 1) FLUTICASONE PROP 50MCG 120D NASAL INHL INSTILL 2 SPRAYS IN ACTIVE NOSTRIL(S) ONCE A DAY (MUST BE USED DIRECTED FOR MINIMUM OF 21 DAYS TO PROVIDE ADEQUATE BENEFITS) Indication: FOR RHINITIS 2) OMEPRAZOLE 20MG EC CAP TAKE ONE CAPSULE BY MOUTH TWICE A DAY ACTIVE TAKE 30 MINUTES PRIOR TO FOOD. CC: presents to walk in clinic with right middle finger injury. Subjective: states on Sunday he jammed his middle finger. The finger became very ecchymotic and swollen. He has been applying heat and ice to finger with improvement. First knuckle joint continues to be stiff and painful with limited range of motion. O/A: [place] is alert and oriented. Right middle finger assessed. Old bruising present which is starting to turn yellow/green. Edema to entire finger present. No obvious malformations noted. Circulation to finger normal with brisk capillary refill and nailbed color normal. Flexion of finger limited due to swelling and pain. Plan/ Intervention: Discussed with PACT CHRISTINA Seals. Xray of finger today with results pending. Continue conservative treatments such as heat/ice, NSAIDS OTC, Tylenol PRN pain, elevate, and rest extremity when able. If any increased redness, pain, or signs of decreased circulation return to clinic or ER for further evaluation. RTC: As scheduled or as needed. Per [facility] Directive 1605.06, wristband documentation: Patient wristband was removed and destroyed by (staff name) Micaela Watson and placed in the designated K[employer]-It bin. /es/ MICAELA SO RN [facility] Signed: 05/14/2024 11:17 Receipt Acknowledged By: 05/14/2024 12:56 /es/ ELEANOR Good [place], G[place] 05/14/2024 ADDENDUM STATUS: COMPLETED Spoke with ONLINE PUBLISHER, small evulsion fracture right middle finger. [place] aware continue with conservative treatment as discussed. Can splint finger to prevent further injury. /es/ MICAELA SO, RN [facility] Signed: 05/14/2024 11:19 RICH SEALS [facility] May 14, 2024 10:50 AM NURSING PROGRESS N OTE: LOCAL TITLE: NURSING NOTE PB STANDARD TITLE: NURSING PROGRESS NOTE DATE OF NOTE: MAY 14, 2024@10:50 ENTRY DATE: MAY 14, 2024@10:50:55 AUTHOR: MICAELA WATSON EXP COSIGNER: URGENCY: STATUS: COMPLETED NURSING NOTE PB Has ADDENDA Blood Pressure: 122/68 Pulse: 60 Temperature: 97.8 F (36.6 C) Pulse Oximetry: 99% Active Outpatient Medications: Active Outpatient Medications (including Supplies): Active Outpatient Medications Status === 1) FLUTICASONE PROP 50MCG 120D NASAL INHL INSTILL 2 SPRAYS IN ACTIVE NOSTRIL(S) ONCE A DAY (MUST BE USED DIRECTED FOR MINIMUM OF 21 DAYS TO PROVIDE ADEQUATE BENEFITS) Indication: FOR RHINITIS 2) OMEPRAZOLE 20MG EC CAP TAKE ONE CAPSULE BY MOUTH TWICE A DAY ACTIVE TAKE 30 MINUTES PRIOR TO FOOD. CC: presents to walk in clinic with right middle finger injury. Subjective: [place] states on Sunday he jammed his middle finger. The finger became very ecchymotic and swollen. He has been applying heat and ice to finger with improvement. First knuckle joint continues to be stiff and painful with limited range of motion. O/A: is alert and oriented. Right middle finger assessed. Old bruising present which is starting to turn yellow/green. Edema to entire finger present. No obvious malformations noted. Circulation to finger normal with brisk capillary refill and nailbed color normal. Flexion of finger limited due to swelling and pain. Plan/ Intervention: Discussed with PACT CHRISTINA Seals. Xray of finger today with results pending. Continue conservative treatments such as heat/ice, NSAIDS OTC, Tylenol PRN pain, elevate, and rest extremity when able. If any increased redness, pain, or signs of decreased circulation return to clinic or ER for further evaluation. RTC: As scheduled or as needed. Per [facility] Directive 1605.06, wristband documentation: Patient wristband was removed and destroyed by (staff name) Micaela Watson and placed in the designated Mangstor-It bin. /angel/ MICAELA SO RN [facility] [place] Signed: 05/14/2024 11:17 Receipt Acknowledged By: 05/14/2024 12:56 /angel/ DENNIS Good[facility] Center[facility] 05/14/2024 ADDENDUM STATUS: COMPLETED Spoke with CHRISTINA, small evulsion fracture right middle finger. aware continue with conservative treatment as discussed. Can splint finger to prevent further injury. /lamonte SO RN [facility] [place] Signed: 05/14/2024 11:19 05/14/2024 ADDENDUM STATUS: COMPLETED Micaela, As mentioned before his finger does have a small fracture at the tip like we discussed. Please have him continue ice, nsaids, and protect it from further injury. If it is not improved in 2 weeks or if it gets worse then we can refer him to Orthopedics. The official report is as follows: Impression: 1. Oblique intra-articular mildly displaced fracture involving the anterior aspect of the proximal portion of the middle phalanx of the right third finger. 2. Very mild degenerative changes. Thank you, /DENNIS FranciscoFILIBERTO [place] Signed: 05/14/2024 12:58 Receipt Acknowledged By: * AWAITING SIGNATURE * MICAELA WATSON [place]
--- OUTSIDE RECORDS SUMMARY | 2024-08-22 09:45 | XMS_ITS | Encounter Summary ---
Author Name [facility] [place] Organization [facility] [place] Address [address] [place] [address] Care Team Providers Care Appointment Specialist Name Role Phone KARLA DIEHL Primary Care Provider RICH Fong Primary Care Provider Unavail able Selected Encounter This section includes the information on record at [place] for the Encounter. Date/Time Encounter Type Encounter Description Reason Provider Source Aug 22, 2024 02:45 PM OFFICE O/P EST SF 10 MIN PRIMARY CARE/MEDICINE ICD-10-CM R52 Pain, unspecified CHANDRA,HOMER E III I[facility] Encounter Template Text not used by [place] Assessments - Encounter Diagnoses This section includes the primary and secondary diagnoses documented for the Encounter. Date/Time Primary/Secondary Diagnosis Diagnosis Name Provider Source Aug 22, 2024 03:02 PM PRIMARY Pain, unspecified CHANDRA,HOMER E III [facility] Plan of Treatment: Future Appointments (+ 6 months) and Future Tests (+/- 45 days) The Plan of Treatment section includes future care activities for the patient from all [place] treatmentfacilities. This section includes future appointments and future orders which are active, pending or scheduled. Future Appointments This section includes appointments that were scheduled to occur 6 months from the date of the Encounter, up to a maximum of 20 appointments. The data comes from all [place] treatment facilities. Appointment Date/Time Appointment Type Appointme nt Facility Name Aug 27, 2024 11:45 AM [facility] [place] [facility] Aug 27, 2024 12:15 PM [facility] Nov 04, 2024 11:15 AM [facility] Nov 13, 2024 10:00 AM AMBULATORY - MEDICINE [facility] Vital Signs: All taken on the encounter date This section contains inpatient and outpatient Vital Signs collected on the date of the Encounter. Date/Time Temperature Pulse Blood Pressure Respiratory Rate SP02 Pain Height Weight Body Mass Index Source Aug 22, 2024 01:59 PM 98.0 87 137/92 18 98 4 230.6 35 [facility] Social History: Smoking Status (Most current) and Tobacco Use (All prior to encounter date) This section includes the most current, and the historical, smoking and tobacco- related health factors from the [place] facility where the Encounter took place. Current Smoking Status This section includes the most current smoking, or tobacco-related health factor, from the [place] facility where the Encounter took place. Date/Time Current Smoking Status Comment Facil ity Nov 15, 2023 01:00 PM VA-TOBACCO USE WI 30 MIN OF WAKE UP [facility] Tobacco Use History This section includes a history of the smoking, or tobacco-related health factors, that were collected on or before the date of the Encounter. The data comes from the [place] facility where the Encounter took place. Date/Time Smoking Status/Tobacco Use Comment F acility Nov 15, 2023 01:00 PM VA-TOBACCO USE ADVICE [facility] [place] [facility] Nov 15, 2023 01:00 PM VA-TOBACCO USE BUSINESS CONTINUITY ANALYST NO [facility] Nov 15, 2023 01:00 PM VA-TOBACCO USE MED NO [facility] Nov 15, 2023 01:00 PM VA-TOBACCO USE WI 30 MIN OF WAKE UP [facility] Nov 15, 2023 01:00 PM VA-TOBACCO USER EVERY DAY [facility] Nov 14, 2022 01:31 PM VA-TOBACCO USE 30 YEARS OR MORE [facility] Nov 14, 2022 01:31 PM VA-TOBACCO USE ADVICE [facility] Nov 14, 2022 01:31 PM VA-TOBACCO USE BUSINESS CONTINUITY ANALYST NO [facility] Nov 14, 2022 01:31 PM VA-TOBACCO USE MED NO [facility] Nov 14, 2022 01:31 PM VA-TOBACCO USE WI 30 MIN OF WAKE UP [facility] Nov 14, 2022 01:31 PM VA-TOBACCO USER EVERY DAY [facility] Jun 04, 2018 03:27 PM VA-TOBACCO DOESNT USE WI 30 MIN WAKEUP [facility] Jun 04, 2018 03:27 PM VA-TOBACCO USE 5 TO 15 YEARS [facility] Jun 04, 2018 03:27 PM VA-TOBACCO USE ADVICE [facility] Jun 04, 2018 03:27 PM VA-TOBACCO USE BUSINESS CONTINUITY ANALYST NO [facility] Jun 04, 2018 03:27 PM VA-TOBACCO USE MED NO [facility] Jun 04, 2018 03:27 PM VA-TOBACCO USER SOME DAYS [facility] Radiology Reports: +/- 30 days of the [...] the Encounter. The data comes from all [place] treatment facilities. Date/Time Radiology Report Provider Source Aug 22, 2024 02:11 PM FOOT,RIGHT,3 VIEWS OR MORE: KAROL TRINH [id number] -1980 M Exm Date: AUG 22, 2024@14:11 Req Phys: GAUTAM CHANDRA E III Pat Loc: PB-ADRIANA PACT JOVAN MARVIN (Req'g Img Loc: PB-XRAY [facility] Service: [place] [address] (Case [id number] COMPLETE) FOOT,RIGHT,3 VIEWS OR MORE (RAD Detailed) CPT:11963 Proc Modifiers : RIGHT Reason for Study: right foot pain Clinical History: right foot pain post fall 1 week ago Report Status: Verified Date Reported: AUG 22, 2024 Date Verified: AUG 22, 2024 Broadcast Program Director E-Sig: Report: 3 views of the right foot reveal no acute osseous or adjacent soft tissue abnormality. Impression: No acute process Primary Interpreting Staff: ESTHER SUAZO, RADIOLOGIST (Broadcast Program Director, no e-sig) /ESTHER Dhaliwal [facility] Encounter Notes: All associated encounter notes This section contains the clinical notes associated to the Encounter. Date/Time Encounter Note(s) Provider Source Aug 22, 2024 02:46 PM PRIMARY CARE PROGR ESS NOTE: LOCAL TITLE: PRIMARY CARE CLINIC PROGRESS NOTE PB STANDARD TITLE: PRIMARY CARE PROGRESS NOTE DATE OF NOTE: AUG 22, 2024@14:46 ENTRY DATE: AUG 22, 2024@14:47:30 AUTHOR: GAUTAM CHANDRA III EXP COSIGNER: URGENCY: STATUS: COMPLETED Reason for visit: Walk in: foot pain/injury Date of last visit: Apr Active Problems: 1) Obstructive sleep apnea 2) Ankylosing spondylitis 3) Arthritis of facet joint of cervical spine 4) Obesity ([facility] [id number]) 5) Headache ([facility] [id number]) 6) GERD - Gastro-Esophageal Reflux Disease ([facility] [id number]) 7) Tobacco User ([facility] [id number]) 8) Vitamin D Deficiency ([facility] [id number]) 9) Exposure to potentially hazardous substance HISTORY OF PRESENT ILLNESS: Very pleasant 43-year-old comes in today for foot pain after an injury last Sunday night. He had been moving some books and wind up getting himself in a slippery situation where his foot slipped and he hit it. It is most painful behind and at the base of the great toe on the right foot. The swelling is gone down significantly. He did hit a rock underneath on the foot pad the other day and that of course did not feel very good. He does not think he outwardly broke it but wonders if maybe he cracked it. Anyway he comes in for an x-ray further diagnostics and therapeutics. 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 Tobacco: Alcohol: Other: FAMILY HISTORY: Noncontributory ALLERGIES: Patient has answered NKA MEDICATIONS: MRT1 - Med Reconciliation INCLUDED IN THIS LIST: Alphabetical list of active outpatient prescriptions dispensed from this VA (local) and dispensed from another AL or DoD facility (remote) as well as inpatient orders (local pending and active), local clinic medications, locally documented non-VA medications, and local prescriptions that have or been discontinued in the past 90 days. Non-VA Meds Last Documented On: Data not found NOTE The display of VA prescriptions dispensed from another [place] or [facility] facility (remote) is limited to active outpatient prescription entries matched to National Drug File at the originating site and may not include some items such as investigational drugs, compounds, etc. NOT INCLUDED IN THIS LIST: Medications self-entered by the patient into personal health records (i.e. [employer]) are NOT included in this list. Non-VA medications documented outside this AL, remote inpatient orders (regardless of status) and remote clinic medications are NOT included in this list. The patient and provider must always discuss medications the patient is taking, regardless of where the medication was dispensed or obtained. OUTPT FLUTICASONE PROP 50MCG 120D NASAL INHL (Status = ) INSTILL 2 SPRAYS IN NOSTRIL(S) ONCE A DAY FOR RHINITIS (MUST BE USED DIRECTED FOR MINIMUM OF 21 DAYS TO PROVIDE ADEQUATE BENEFITS) Rx# [id number] Last Released: 07/27/23 Qty/Days Supply: Rx Expiration Date: 07/24/24 Refills Remainin Indication: FOR RHINITIS OUTPT OMEPRAZOLE 20MG EC CAP (Status = Active) TAKE ONE CAPSULE BY MOUTH TWICE A DAY TAKE 30 MINUTES PRIOR TO FOOD. Rx# [id number] Last Released: 10/27/23 Qty/Days Supply: Rx Expiration Date: 10/26/24 Refills Remainin SUPPLIES PHARMACY TERMS AND POSSIBLE PATIENT ACTIONS INPT = AL inpatient order IV = AL intravenous medication OUTPT = AL outpatient prescription PHARMACY POSSIBLE PATIENT TERMS EXPLANATION ACTIONS -------- ----- ACTIVE A prescription that can be If you have refills, filled at the local [place] pharmacy. you may request a refill of this prescription from your VA pharmacy. CLINIC A medication you received during If you have questions a visit to a AL clinic or about this medication emergency department. contact your [place] healthcare team. DISCONTINUED A prescription your provider has Contact your VA stopped. It is no longer healthcare team if you available to be sent to you or need more of this picked up at the AL pharmacy medication. window. A prescription which is [...] the VA. Or, it may be an phas-muh-gbzhknt (OTC), herbal, dietary supplements or sample medication. [...] ready yet. this medication now, contact your [place] pharmacy. SUSPENDED An active prescription that is Contact your VA not scheduled to be filled yet. pharmacy if you need You should receive it before this medication now. you run out. REVIEW OF SYSTEMS: HEENT: RESPIRATORY: CARDIOVASCULAR: GI: MUSCULOSKELETAL: Other:foot pain/swelling SKIN: : PSYCH: VITALS: BP: 137/92 (08/22/2024 13:59) Pulse: 87 (08/22/2024 13:59) Resp: 18 (08/22/2024 13:59) Weight: 230.6 lb [104.60 kg] (08/22/2024 13:59) PHYSICAL EXAM: HEENT: Normocephalic atraumatic EOMI PERRLA Cardiac: Regular rate and rhythm Respiratory: No respiratory distress or shortness of breath/tachypnea Abdomen: Grossly benign Extremities: On the right foot he has some redness and swelling at the base of the great toe. There is no gross deformity. Distal neurovascular is grossly intact. He states swelling was significantly more marked and bruising likewise when this happened. ASSESSMENT AND PLAN: Right foot pain after injury > X-ray shows no apparent fractures, will be over read by radiologist /angel/ MD MARISOL DEMARCO III [facility] Signed: 08/22/2024 15:03 GAUTAM CHANDRA III [facility]
--- OUTSIDE RECORDS SUMMARY | 2024-08-27 06:45 | XMS_ITS | Encounter Summary ---
Author Name [facility] [place] [facility] [place] [facility] [place] Address [address] [place] [id number] Care Team Providers Care Psychology Lecturer Name Role Phone KARLA DIEHL Primary Care Provider RICH Fong Primary Care Provider Unavail able Selected Encounter This section includes the information on record at [place] for the Encounter. Date/Time Encounter Type Encounter Description Reason Provider Source Aug 27, 2024 11:45 AM OFF/OP EST JULY X REQ PHY/QHP PRIMARY CARE/MEDICINE ICD-10-CM H10.9 Unspecified conjunctivitis CUSTREDMICAELA IHChris Encounter Template Text not used by [place] Assessments - Encounter Diagnoses This section includes the primary and secondary diagnoses documented for the Encounter. Date/Time Primary/Secondary Diagnosis Diagnosis Name Provider Source Aug 27, 2024 01:06 PM PRIMARY Unspecified conjunctivitis CUSTREDJORGE LI J [facility] Plan of Treatment: Future Appointments [...] 20 appointments. The data comes from all [place] treatment facilities. Appointment Date/Time Appointment Type Appointme nt Facility Name Nov 04, 2024 11:15 AM AMBULATORY - MEDICINE [facility] [place] [facility] Nov 13, 2024 10:00 AM AMBULATORY - MEDICINE [facility] Vital Signs: All taken on the encounter date This section contains inpatient and outpatient Vital Signs collected on the date of the Encounter. Date/Time Temperature Pulse Blood Pressure Respiratory Rate SP02 Pain Height Weight Body Mass Index Source Aug 27, 2024 01:00 PM 98 76 136/88 [place] [facility] Social History: Smoking Status (Most current) and Tobacco Use (All prior to encounter date) This section includes the most current, and the historical, smoking and tobacco- related health factors from the [place] facility where the Encounter took place. Current Smoking Status This section includes the most current smoking, or tobacco-related health factor, from the [place] facility where the Encounter took place. Date/Time Current Smoking Status Comment Facil ity Nov 15, 2023 01:00 PM VA-TOBACCO USE WI 30 MIN OF WAKE UP [facility] Tobacco Use History This section includes a history of the smoking, or tobacco-related health factors, that were collected on or before the date of the Encounter. The data comes from the [place] facility where the Encounter took place. Date/Time Smoking Status/Tobacco Use Comment F acility Nov 15, 2023 01:00 PM VA-TOBACCO USE ADVICE [facility] [place] [facility] Nov 15, 2023 01:00 PM VA-TOBACCO USE PROTOTYPE TECHNICIAN NO [facility] [place] [facility] Nov 15, 2023 01:00 PM VA-TOBACCO USE MED NO [facility] [place] [facility] Nov 15, 2023 01:00 PM VA-TOBACCO USE WI 30 MIN OF WAKE UP [facility] [place] [facility] Nov 15, 2023 01:00 PM VA-TOBACCO USER EVERY DAY [facility] Nov 14, 2022 01:31 PM VA-TOBACCO USE 30 YEARS OR MORE [facility] Nov 14, 2022 01:31 PM VA-TOBACCO USE ADVICE [facility] Nov 14, 2022 01:31 PM VA-TOBACCO USE PROTOTYPE TECHNICIAN NO [facility] [place] [facility] Nov 14, 2022 01:31 PM VA-TOBACCO USE MED NO [facility] [place] [facility] Nov 14, 2022 01:31 PM VA-TOBACCO USE WI 30 MIN OF WAKE UP [facility] [place] [facility] Nov 14, 2022 01:31 PM [facility] Jun 04, 2018 03:27 PM VA-TOBACCO DOESNT USE WI 30 MIN WAKEUP [facility] Jun 04, 2018 03:27 PM VA-TOBACCO USE 5 TO 15 YEARS [facility] Jun 04, 2018 03:27 PM VA-TOBACCO USE ADVICE [facility] Jun 04, 2018 03:27 PM VA-TOBACCO USE PROTOTYPE TECHNICIAN NO [facility] Jun 04, 2018 03:27 PM VA-TOBACCO USE MED NO [facility] Jun 04, 2018 03:27 PM VA-TOBACCO USER SOME DAYS [facility] Radiology Reports: +/- 30 days of [...] the Encounter. The data comes from all [place] treatment facilities. Date/Time Radiology Report Provider Source Aug 22, 2024 02:11 PM FOOT,RIGHT,3 VIEWS OR MORE: KATHY TRINHKATIE Villegas [id number] -[id number] M Ex Date: AUG 22, 2024@14:11 Req Phys: GAUTAM MCCLENDON E III Pat Loc: PB-ADRIANA PACT [facility] (Req'g Img Loc: PB-XRAY [place] Service: [place] [address] (Case [id number] COMPLETE) FOOT,RIGHT,3 VIEWS OR MORE (RAD Detailed) CPT:10022 Proc Modifiers : RIGHT Reason for Study: right foot pain Clinical History: right foot pain post fall 1 week ago Report Status: Verified Date Reported: AUG 22, 2024 Date Verified: AUG 22, 2024 Electric Motor Assembler E-Sig: Report: 3 views of the right foot reveal no acute osseous or adjacent soft tissue abnormality. Impression: No acute process Primary Interpreting Staff: ESTHER SUAZO, RADIOLOGIST (Electric Motor Assembler, no e-sig) /ESTHER Dhaliwal [facility] Encounter Notes: All associated encounter notes This section contains the clinical notes associated to the Encounter. Date/Time Encounter Note(s) Provider Source Aug 27, 2024 12:59 PM NURSING PROGRESS N OTE: LOCAL TITLE: NURSING NOTE PB STANDARD TITLE: NURSING PROGRESS NOTE DATE OF NOTE: AUG 27, 2024@12:59 ENTRY DATE: AUG 27, 2024@13:00:01 AUTHOR: MICAELA WATSON EXP COSIGNER: URGENCY: STATUS: COMPLETED Blood Pressure: 136/88 Pulse: 76 Temperature: 98 F (36.7 C) Pulse Oximetry: 98% Active Outpatient Medications: Active Outpatient Medications (including Supplies): Active Outpatient Medications Status 1) OMEPRAZOLE 20MG EC CAP TAKE ONE CAPSULE BY MOUTH TWICE A DAY ACTIVE TAKE 30 MINUTES PRIOR TO FOOD. CC: presents to clinic with pain and swelling left eye. Subjective: states he noted left eye soreness and pain that started a couple of days ago. Eye has been getting increased redness per . Denies any injury and no drainage noted. Denies itching. O/A: [place] is alert and oriented. Denies any changes in vision. Left eye with mild edema lower eyelid. Conjunctiva deep red in color with no drainage noted from eye. Plan/ Intervention: Discussed with Dr. Mcclendon. He evaluated . New prescription for tobradex eye drops. Prescription and immediate need form hand delivered to to present to pharmacy of choice. Instructed to take as directed. If symptoms do not improve or worsen return to clinic for re- evaluation. RTC: As scheduled and as needed. Per [facility] Directive 1605.06, wristband documentation: Patient wristband was removed and destroyed by (staff name) Micaela Watson RN and placed in the designated Shred-It bin. /angel/ MICAELA SO, [facility] [facility] Signed: 08/27/2024 13:06 Receipt Acknowledged By: 08/27/2024 13:36 /angel/ MD MARISOL DEMARCO III [facility] CUSTRED,MICAELA DAVIDSON [facility]
--- OUTSIDE RECORDS SUMMARY | 2024-08-27 07:15 | XMS_ITS | Encounter Summary ---
Author Name [facility] [place] Organization [facility] [place] Address [address] [place] [address] Care Team Providers Care Cycle Manager Name Role Phone KARLA DIEHL Primary Care Provider RICH Fong Primary Care Provider Unavail able Selected Encounter This section includes the information on record at [place] for the Encounter. Date/Time Encounter Type Encounter Description Reason Provider Source Aug 27, 2024 12:15 PM OFFICE O/P EST LOW 20 MIN PRIMARY CARE/MEDICINE ICD-10-CM H10.32 Unspecified acute conjunctivitis, left eye CHANDRA,HOMER E III IHE Encounter Template Text not used by [place] Assessments - Encounter Diagnoses This section includes the primary and secondary diagnoses documented for the Encounter. Date/Time Primary/Secondary Diagnosis Diagnosis Name Provider Source Aug 27, 2024 12:44 PM PRIMARY Unspecified acute conjunctivitis, left eye CHANDRA,HOMER E III [facility] Plan of Treatment: Future Appointments (+ [...] 20 appointments. The data comes from all [place] treatment facilities. Appointment Date/Time Appointment Type Appointme nt Facility Name Nov 04, 2024 11:15 AM AMBULATORY - MEDICINE [facility] Nov 13, 2024 10:00 AM AMBULATORY - MEDICINE [facility] Vital Signs: All taken on the encounter date This section contains inpatient and outpatient Vital Signs collected on the date of the Encounter. Date/Time Temperature Pulse Blood Pressure Respiratory Rate SP02 Pain Height Weight Body Mass Index Source Aug 27, 2024 01:00 PM 98 76 136/88 [facility] Social History: Smoking Status (Most current) and Tobacco Use (All prior to encounter date) This section includes the most current, and the historical, smoking and tobacco- related health factors from the [place] facility where the Encounter took place. Current Smoking Status This section includes the most current smoking, or tobacco-related health factor, from the [place] facility where the Encounter took place. Date/Time Current Smoking Status Comment Facil ity Nov 15, 2023 01:00 PM VA-TOBACCO USER EVERY DAY [facility] Tobacco Use History This section includes a history of the smoking, or tobacco-related health factors, that were collected on or before the date of the Encounter. The data comes from the [place] facility where the Encounter took place. Date/Time Smoking Status/Tobacco Use Comment F acility Nov 15, 2023 01:00 PM VA-TOBACCO USE ADVICE [facility] Nov 15, 2023 01:00 PM VA-TOBACCO USE CLIENT EXPERIENCE SPECIALIST NO [facility] Nov 15, 2023 01:00 PM VA-TOBACCO USE MED NO [facility] Nov 15, 2023 01:00 PM VA-TOBACCO USE WI 30 MIN OF WAKE UP [place] [facility] Nov 15, 2023 01:00 PM VA-TOBACCO USER EVERY DAY [place] [facility] Nov 14, 2022 01:31 PM VA-TOBACCO USE 30 YEARS OR MORE [place] [facility] Nov 14, 2022 01:31 PM VA-TOBACCO USE ADVICE [place] [facility] Nov 14, 2022 01:31 PM VA-TOBACCO USE CLIENT EXPERIENCE SPECIALIST NO [facility] Nov 14, 2022 01:31 PM VA-TOBACCO USE MED NO [facility] Nov 14, 2022 01:31 PM VA-TOBACCO USE WI 30 MIN OF WAKE UP [facility] Nov 14, 2022 01:31 PM VA-TOBACCO USER EVERY DAY [facility] Jun 04, 2018 03:27 PM VA-TOBACCO DOESNT USE WI 30 MIN WAKEUP [facility] Jun 04, 2018 03:27 PM VA-TOBACCO USE 5 TO 15 YEARS [facility] Jun 04, 2018 03:27 PM VA-TOBACCO USE ADVICE [facility] Jun 04, 2018 03:27 PM VA-TOBACCO USE CLIENT EXPERIENCE SPECIALIST NO [facility] Jun 04, 2018 03:27 PM VA-TOBACCO USE MED NO [facility] Jun 04, 2018 03:27 PM VA-TOBACCO USER SOME DAYS [facility] Radiology Reports: +/- 30 days of [...] the Encounter. The data comes from all [place] treatment facilities. Date/Time Radiology Report Provider Source Aug 22, 2024 02:11 PM FOOT,RIGHT,3 VIEWS OR MORE: THANIAADAMKATHY PerezKAROL K [id number] -[id number] M Exm Date: AUG 22, 2024@14:11 Req Phys: CORAZONHOMER E III Pat Loc: PB-ADRIANA PACT MALACHICARMELMELONIE YON (Req'g Img Loc: PB-XRAY [place] Service: [place] [address] (Case [id number] COMPLETE) FOOT,RIGHT,3 VIEWS OR MORE (RAD Detailed) CPT:26790 Proc Modifiers : RIGHT Reason for Study: right foot pain Clinical History: right foot pain post fall 1 week ago Report Status: Verified Date Reported: AUG 22, 2024 Date Verified: AUG 22, 2024 Income Tax Adjuster E-Sig: Report: 3 views of the right foot reveal no acute osseous or adjacent soft tissue abnormality. Impression: No acute process Primary Interpreting Staff: ESTHER SUAZO, RADIOLOGIST (Income Tax Adjuster, no e-sig) /ESTHER Dhaliwal [facility] Encounter Notes: All associated encounter notes This section contains the clinical notes associated to the Encounter. Date/Time Encounter Note(s) Provider Source Aug 27, 2024 12:36 PM PRIMARY CARE PROGR ESS NOTE: LOCAL TITLE: PRIMARY CARE CLINIC PROGRESS NOTE PB STANDARD TITLE: PRIMARY CARE PROGRESS NOTE DATE OF NOTE: AUG 27, 2024@12:36 ENTRY DATE: AUG 27, 2024@12:36:39 AUTHOR: GAUTAM CHANDRA III EXP COSIGNER: URGENCY: STATUS: COMPLETED Reason for visit: Eye infection Date of last visit: Oct Active Problems: 1) Obstructive sleep apnea 2) Ankylosing spondylitis 3) Arthritis of facet joint of cervical spine 4) Obesity ([facility] [id number]) 5) Headache ([facility] [id number]) 6) GERD - Gastro-Esophageal Reflux Disease ([facility] [id number]) 7) Tobacco User ([facility] [id number]) 8) Vitamin D Deficiency ([facility] [id number]) 9) Exposure to potentially hazardous substance HISTORY OF PRESENT ILLNESS: Very pleasant 43-year-old comes in today for an eye infection. He states this began over the weekend and started with some pain in the left eye. It is since gotten red and inflamed. He did weed eat but he does not think he got anything in it. No visual disturbance PAST HISTORY: As above SOCIAL HISTORY: Socially active and performs all of his own ADLs and IADLs without the use of adaptive equipment. Is raising a younger son after an older son in college. Tobacco: Alcohol: Other: FAMILY HISTORY: Noncontributory ALLERGIES: Patient has answered NKA MEDICATIONS: MRT1 - Med Reconciliation INCLUDED IN THIS LIST: Alphabetical list of active outpatient prescriptions dispensed from this [place] (local) and dispensed from another [place] or [place] facility (remote) as well as inpatient orders (local pending and active), local clinic medications, locally documented non-VA medications, and local prescriptions that have or been discontinued in the past 90 days. Non-VA Meds Last Documented On: Data not found NOTE The display of VA prescriptions dispensed from another [place] or [place] facility (remote) is limited to active outpatient prescription entries matched to National Drug File at the originating site and may not include some items such as investigational drugs, compounds, etc. NOT INCLUDED IN THIS LIST: Medications self-entered by the patient into personal health records (i.e. [employer]) are NOT included in this list. Non-VA medications documented outside this [place], remote inpatient orders (regardless of status) and [...] 21 DAYS TO PROVIDE ADEQUATE BENEFITS) Rx# [id number] Last Released: 07/27/23 Qty/Days Supply: Rx Expiration Date: 07/24/24 Refills Remainin Indication: FOR RHINITIS OUTPT OMEPRAZOLE 20MG EC CAP (Status = Active) TAKE ONE CAPSULE BY MOUTH TWICE A DAY TAKE 30 MINUTES PRIOR TO FOOD. Rx# [id number] Last Released: 10/27/23 Qty/Days Supply: Rx Expiration Date: 10/26/24 Refills Remainin SUPPLIES PHARMACY TERMS AND POSSIBLE PATIENT ACTIONS INPT = [place] inpatient order IV = [place] intravenous medication OUTPT = [place] outpatient prescription PHARMACY POSSIBLE PATIENT TERMS EXPLANATION ACTIONS -------- ----- ACTIVE A prescription that can be If you have refills, filled at the local [place] pharmacy. you may request a refill of this prescription from your [place] pharmacy. CLINIC A medication you received during If you have questions a visit to a [place] clinic or about this medication emergency department. contact your [place] healthcare team. DISCONTINUED A prescription your provider has Contact your [place] stopped. It is no longer healthcare team if you available to be sent to you or need more of this picked up at the [place] pharmacy medication. window. A prescription which is [...] the VA. Or, it may be an pjva-hmd-galljhe (OTC), herbal, dietary supplements or sample medication. [...] An active prescription that is Contact your [place] not scheduled to be filled yet. pharmacy if you need You should receive it before this medication now. you run out. REVIEW OF SYSTEMS: HEENT: No visual or auditory symptoms., Watering of eyes, Other:red, pain RESPIRATORY: CARDIOVASCULAR: GI: MUSCULOSKELETAL: SKIN: : PSYCH: VITALS: BP: 137/92 (08/22/2024 13:59) Pulse: 87 (08/22/2024 13:59) Resp: 18 (08/22/2024 13:59) Weight: 230.6 lb [104.60 kg] (08/22/2024 13:59) PHYSICAL EXAM: HEENT: Patient has injected sclera both bulbar and conjunctival. Conjunctiva is especially red on the left lower half of the eye. I did the best I could to invert his eyelid and did not see any foreign bodies. He was wearing glasses at the time of his weed eating and as noted above did not feel like anything flew into his eye. Cardiac: - Respiratory: No shortness of breath or tachypnea Abdomen: - Extremities: Gait normal ASSESSMENT AND PLAN: Conjunctivitis> TobraDex ophthalmic 4 times daily and may use every couple of hours today. If problem does not resolve or gets worse I have asked him to call us and we will get him into see an wet char conveyor tender or for him to go to the emergency room. Patient voices understanding appreciation /angel/ MD MARISOL DEMARCO III [facility] Signed: 08/27/2024 12:45 GAUTAM CHANDRA III [facility]
[2024-11-04 12:11] VITALS: BP 143/96; PULSE 93; TEMP 36.7; O2SAT 98; BMI 34.0
--- OUTSIDE RECORDS SUMMARY | 2024-11-04 12:15 | XMS_ITS | Continuity of Care Document ---
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 [address] [place] [address] [facility] CBC NEUTROPHILS [#/VOLUME] IN BLOOD BY AUTOMATED COUNT 5.55 10*3/uL 2.10 - 8.00 11/14 Specimen Type: BLOOD No comment entered. Ordering Provider: LATASHA SEALS R Report Released Date/Time: Nov 13, 2023 03:48 PM Reporting Lab: [place] [facility] [address] [place] [address] Performing Lab: [place] [facility] [address] [place] [address] [facility] CBC EOSINOPHILS [#/VOLUME] IN BLOOD BY AUTOMATED COUNT 0.07 10*3/uL 0.00 - 0.60 11/14 Specimen Type: BLOOD No comment entered. Ordering Provider: LATSAHA SEALS R Report Released Date/Time: Nov 13, 2023 03:48 PM Reporting Lab: [place] [facility] [address] [place] [address] Performing Lab: [place] [facility] [address] [place] [address] [place] [address] [facility] CBC BASOPHILS [#/VOLUME] IN BLOOD BY AUTOMATED COUNT 0.05 10*3/uL 0.00 - 0.20 11/14 Specimen Type: BLOOD No comment entered. Ordering Provider: LATASHA SEALS R Report Released Date/Time: Nov 13, 2023 03:48 PM Reporting Lab: [place] [facility] [address] [place] [address] Performing Lab: [place] [facility] [address] [place] [address] [place] [address] [facility] CBC IMMATURE GRANULOCYTE S/100 LEUKOCYTES IN BLOOD BY AUTOMATED COUNT 0.5 11/14 Specimen Type: BLOOD No comment entered. Ordering Provider: LATASHA SEALS Report Released Date/Time: Nov 13, 2023 03:48 PM Reporting Lab: [place] [facility] [address] [place] [address] Performing Lab: [place] [facility] [address] [place] [address] [facility] CBC IMMATURE GRANULOCYTE S [#/VOLUME] IN BLOOD BY AUTOMATED COUNT 0.04 10*3/uL 0.00 - 0.05 11/14 Specimen Type: BLOOD No comment entered. Ordering Provider: LATASHA SEALS R Report Released Date/Time: Nov 13, 2023 03:48 PM Reporting Lab: [place] [facility] [address] [place] [address] Performing Lab: [place] [facility] [address] [place] [address] [facility] PROST. SPECIFIC AG.(PB-ST L) PROSTATE SPECIFIC AG [MASS/VOLUM E] IN SERUM OR PLASMA 0.94 ng/mL 0 - 4 11/14 Specimen Type: SERUM No comment entered. Ordering Provider: LATASHA SEALS R Report Released Date/Time: Nov 13, 2023 03:48 PM Reporting Lab: [place] [facility] [address] [place] [address] Performing Lab: [place] [facility] [address] [place] [address] [facility] COMPREHEN SIVE METABOLIC PANEL CREATININE [MASS/VOLUM E] IN SERUM OR PLASMA 0.95 mg/dL 0.7 - 1.3 11/14 Specimen Type: PLASMA No comment entered. Ordering Provider: LATASHA SEALS R Report Released Date/Time: Nov 13, 2023 03:48 PM Reporting Lab: [place] [facility] [address] [place] [address] Performing Lab: [place] [facility] [address] [place] [address] [facility] COMPREHEN SIVE METABOLIC PANEL UREA NITROGEN [MASS/VOLUM E] IN SERUM OR PLASMA 10 mg/dL 9 - 11/14 Specimen Type: PLASMA No comment entered. Ordering Provider: LATASHA SEALS R Report Released Date/Time: Nov 13, 2023 03:48 PM Reporting Lab: [place] [facility] [address] [place] [phone] Performing Lab: [place] [facility] [address] [place] [phone] [facility] COMPREHEN SIVE METABOLIC PANEL GLUCOSE [MASS/VOLUM E] IN SERUM OR PLASMA 98 mg/dL 72 - 99 11/14 Specimen Type: PLASMA No comment entered. Ordering Provider: LATASHA SEALS R Report Released Date/Time: Nov 13, 2023 03:48 PM Reporting Lab: [place] [facility] [address] [place] [address] Performing Lab: [place] [facility] [address] [place] [address] [facility] COMPREHEN SIVE METABOLIC PANEL SODIUM [MOLES/VOLU ME] IN SERUM OR PLASMA 136 meq/L 136 - 145 11/14 Specimen Type: PLASMA No comment entered. Ordering Provider: LATASHA SEALS R Report Released Date/Time: Nov 13, 2023 03:48 PM Reporting Lab: [place] [facility] [address] [place] [address] Performing Lab: [place] [facility] [address] [place] [address] [facility] COMPREHEN SIVE METABOLIC PANEL POTASSIUM [MOLES/VOLU ME] IN SERUM OR PLASMA 4.1 meq/L 3.5 - 5 11/14 Specimen Type: PLASMA No comment entered. Ordering Provider: LATASHA SEALS R Report Released Date/Time: Nov 13, 2023 03:48 PM Reporting Lab: [place] [facility] [address] [place] [address] Performing Lab: [place] [facility] [address] [place] [address] [facility] COMPREHEN SIVE METABOLIC PANEL CHLORIDE [MOLES/VOLU ME] IN SERUM OR PLASMA 103 meq/L 98 - 107 11/14 Specimen Type: PLASMA No comment entered. Ordering Provider: LATASHA SEALS R Report Released Date/Time: Nov 13, 2023 03:48 PM Reporting Lab: [place] [facility] [address] [place] [address] Performing Lab: [place] [facility] [address] [place] [address] [facility] COMPREHEN SIVE METABOLIC PANEL CARBON DIOXIDE, TOTAL [MOLES/VOLU ME] IN SERUM OR PLASMA 24 meq/L 22 - 31 11/14 Specimen Type: PLASMA No comment entered. Ordering Provider: LATASHA SEALS R Report Released Date/Time: Nov 13, 2023 03:48 PM Reporting Lab: [place] [facility] [address] [place] [address] Performing Lab: [place] [facility] [address] [place] [address] [facility] COMPREHEN SIVE METABOLIC PANEL CALCIUM [MASS/VOLUM E] IN SERUM OR PLASMA 9.2 mg/dL 8.4 - 10.4 11/14 Specimen Type: PLASMA No comment entered. Ordering Provider: LATASHA SEALS R Report Released Date/Time: Nov 13, 2023 03:48 PM Reporting Lab: [place] [facility] [address] [place] [address] Performing Lab: [place] [facility] [address] [place] [address] [facility] COMPREHEN SIVE METABOLIC PANEL PROTEIN [MASS/VOLUM E] IN SERUM OR PLASMA 7.7 g/dL 6 - 8.6 11/14 Specimen Type: PLASMA No comment entered. Ordering Provider: LATASHA SEALS R Report Released Date/Time: Nov 13, 2023 03:48 PM Reporting Lab: [place] [facility] [address] [place] [address] Performing Lab: [place] [facility] [address] [place] [address] [facility] COMPREHEN SIVE METABOLIC PANEL ALBUMIN [MASS/VOLUM E] IN SERUM OR PLASMA 4.8 g/dL 3.4 - 5 11/14 Specimen Type: PLASMA No comment entered. Ordering Provider: LATASHA SEALS R Report Released Date/Time: Nov 13, 2023 03:48 PM Reporting Lab: [place] [facility] [address] [place] [address] Performing Lab: [place] [facility] [address] [place] [address] [facility] COMPREHEN SIVE METABOLIC PANEL BILIRUBIN.T OTAL [MASS/VOLUM E] IN SERUM OR PLASMA 0.5 mg/dL 0.2 - 1.2 11/14 Specimen Type: PLASMA No comment entered. Ordering Provider: LATASHA SEALS R Report Released Date/Time: Nov 13, 2023 03:48 PM Reporting Lab: [place] [facility] [address] [place] [address] Performing Lab: [place] [facility] [address] [place] [address] [facility] COMPREHEN SIVE METABOLIC PANEL ALKALINE PHOSPHATASE [ENZYMATIC ACTIVITY/VO LUME] IN SERUM OR PLASMA 47 U/L 40 - 150 11/14 Specimen Type: PLASMA No comment entered. Ordering Provider: LATASHA SEALS R Report Released Date/Time: Nov 13, 2023 03:48 PM Reporting Lab: [place] [facility] [address] [place] [address] Performing Lab: [place] [facility] [address] [place] [address] [facility] COMPREHEN SIVE METABOLIC PANEL ASPARTATE AMINOTRANSF ERASE [ENZYMATIC ACTIVITY/VO LUME] IN SERUM OR PLASMA 38 U/L 5 - 34 11/14 H Specimen Type: PLASMA No comment entered. Ordering Provider: LATASHA SEALS Report Released Date/Time: Nov 13, 2023 03:48 PM Reporting Lab: [place] [facility] [address] [place] [address] Performing Lab: [place] [facility] [address] [place] [address] [facility] COMPREHEN SIVE METABOLIC PANEL ALANINE AMINOTRANSF ERASE [ENZYMATIC ACTIVITY/VO LUME] IN SERUM OR PLASMA 73 U/L 8 - 40 11/14 H Specimen Type: PLASMA No comment entered. Ordering Provider: LTAASHA SEALS Report Released Date/Time: Nov 13, 2023 03:48 PM Reporting Lab: [place] [facility] [address] [place] [address] Performing Lab: [place] [facility] [address] [place] [address] [facility] COMPREHEN SIVE METABOLIC PANEL GLOMERULAR FILTRATION RATE/1.73 SQ M.PREDICTED [VOLUME RATE/AREA] IN SERUM, PLASMA OR BLOOD BY CREATININE- BASED FORMULA (CKD-EPI 2020) 102 11/14 Specimen Type: PLASMA No comment entered. Ordering Provider: LATASHA SEALS Report Released Date/Time: Nov 13, 2023 03:48 PM Reporting Lab: [place] [facility] [address] [place] [address] Performing Lab: [place] [facility] [address] [place] [address] [facility] TOTAL T3 (PB-SO) TRIIODOTHYR ONINE (T3) FREE [MASS/VOLUM E] IN SERUM OR PLASMA 105.8 ng/dL 76 - 181 09/09 Specimen Type: SERUM Comment: [facility], [address] [place] [address] Peter Perez M.D., Ph.D., Director of Laboratorie s , CLIA [id number] Ordering Provider: LATASHA SEALS Report Released Date/Time: Sep 10, 2023 12:17 PM Reporting Lab: [place] [facility] [address] [place] [address] Performing Lab: [facility] [address] [facility] T-4-thyro xine,tot (PB) THYROXINE (T4) [MASS/VOLUM E] IN SERUM OR PLASMA 8.4 ug/dL 5.9 - 10.3 09/09 Specimen Type: SERUM Comment: Test Performed by [facility], [address] [place] [address] Peter Perez M.D., Ph.D., Director of Laboratorie s , CLIA [id number] Ordering Provider: LATASHA SEALS Report Released Date/Time: Sep 10, 2023 12:17 PM Reporting Lab: [place] [facility] [address] [place] [address] Performing Lab: [facility] [address] [facility] Vital Signs Combined list of inpatient and outpatient Vital Signs from Department of Defense and Veterans Affairs, ranging from 12 months to all on record, depending upon the facility. Vital Sign Value Date Comments Source SYSTOLIC BLOOD PRESSURE 136 08/27/2024 13:00:00 [facility] DIASTOLIC BLOOD PRESSURE 88 08/27/2024 13:00:00 [facility] TEMPERATURE 98 08/27/2024 13:00:00 [facility] PULSE 76 08/27/2024 13:00:00 [facility] SYSTOLIC BLOOD PRESSURE 137 08/22/2024 13:59:00 [facility] DIASTOLIC BLOOD PRESSURE 92 08/22/2024 13:59:00 [facility] PULSE OXIMETRY 98 08/22/2024 13:59:00 [facility] WEIGHT 230.6 08/22/2024 13:59:00 [place] [facility] BMI 35 kg/m2 08/22/2024 13:59:00 [facility] [place] [facility] PAIN 4 08/22/2024 13:59:00 [facility] TEMPERATURE 98.0 08/22/2024 13:59:00 [facility] PULSE 87 08/22/2024 13:59:00 [facility] RESPIRATION 18 08/22/2024 13:59:00 [facility] SYSTOLIC BLOOD PRESSURE 122 05/14/2024 10:51:00 [facility] DIASTOLIC BLOOD PRESSURE 68 05/14/2024 10:51:00 [facility] TEMPERATURE 97.8 05/14/2024 10:51:00 [facility] PULSE 60 05/14/2024 10:51:00 [facility] SYSTOLIC BLOOD PRESSURE 150 02/27/2024 11:19:56 [facility] DIASTOLIC BLOOD PRESSURE 97 02/27/2024 11:19:56 [facility] PULSE OXIMETRY 98 02/27/2024 11:19:56 [facility] [place] [facility] WEIGHT 230.1 02/27/2024 11:19:56 [facility] [place] [facility] BMI 35 kg/m2 02/27/2024 11:19:56 [facility] [place] [facility] TEMPERATURE 97.4 02/27/2024 11:19:56 [facility] PULSE 86 02/27/2024 11:19:56 [facility] RESPIRATION 18 02/27/2024 11:19:56 [facility] SYSTOLIC BLOOD PRESSURE 149 11/15/2023 13:09:55 [facility] DIASTOLIC BLOOD PRESSURE 92 11/15/2023 13:09:55 [facility] PULSE OXIMETRY 99 11/15/2023 13:09:55 [place] [facility] WEIGHT 230 11/15/2023 13:09:55 [facility] [place] [facility] BMI 35 kg/m2 11/15/2023 13:09:55 [facility] PAIN 0 11/15/2023 13:09:55 [facility] HEIGHT 68 11/15/2023 13:09:55 [facility] [place] [facility] TEMPERATURE 98.2 11/15/2023 13:09:55 [facility] PULSE 84 11/15/2023 13:09:55 [facility] RESPIRATION 18 11/15/2023 13:09:55 [facility] Encounters Combined list of: 1) Encounters from Department of Veterans Affairs facilities going backup to the last 18 months, not all VA inpatient encounters are included; 2) Encounters from the Department of Defense facilities going backup to 280 months. Location Location Details Encounter Type Encounter Number Reason For Visit Attending Provider ADM Date DC Date Status Disposition Source Medical Group([facility]) OUTPATIENT [id number] PETER Ly 11/20 Released w/o [employer]([facility] ) [facility]) OUTPATIENT [id number] pre-dep jeromeymAMARIS Lobo 11/20 Released w/o [employer]([facility]) [facility]) OUTPATIENT [id number] state back pain and headach ANNAMARIE Vazquez 04/19 Released w/o [employer]([facility]) [facility]) TELE CONSULT [id number] XRAY RESULTS HILARIO ROLON Liz 04/20 Medical Group([facility]) Medical Group([facility]) TELE CONSULT [id number] MRI Results HILARIO ROLON Liz 05/03 Medical Group([facility]) Medical Group([facility]) TELE CONSULT [id number] LALA ADAIR 05/05 Medical Group([facility]) Medical Group([facility]) OUTPATIENT [id number] PRE DEPLYME GENESIS FISHER 06/28 Released w/o [employer]([facility]) [facility](Opt ometry Services) OUTPATIENT [id number] MICHAEL Ureña 09/20 Released w/o [employer](O ptometr y Service s) Medical Group([facility]) OUTPATIENT [id number] headach es, ongoing ANNAMARIE MARIE S 09/28 Released w/o [employer]([facility]) [facility](Phy sical Therapy) OUTPATIENT [id number] LUIS ALFREDOIRENE RHIANNONMATIAS MARY KAY MYERS P. 10/11 Released w/o [employer](P hysical Therapy ) Medical Group(Phy sical Therapy Contract) OUTPATIENT [id number] MARY KAY MYERS P. 10/17 Released w/o [employer](P hysical Therapy Contrac t) [facility]) OUTPATIENT [id number] pre-dep joycelynent SARAH CRANE 10/18 Released w/o [employer]([facility]) [facility]) OUTPATIENT [id number] f/u labs ANNAMARIE MARIE S 10/23 Released w/o [employer]([facility]) [facility]) TELE CONSULT [id number] x-ray results DIVYA HERRERA 10/24 Medical Group(F [facility]) Medical Group(Phy sical Therapy Contract) OUTPATIENT [id number] VLADIMIR DIEHL 10/25 Released w/o [employer](P hysical Therapy Contrac t) Medical Group([facility]) TELE CONSULT [id number] state knee pain HERMANCRISSY Nelly 09/21 Medical Group(F P Rok I) Medical Group(FP Rok II) OUTPATIENT [id number] right knee pain EDGARD HOLGUIN 09/26 Released w/o [employer](F P Rok II) [facility] Group(Phy sical Therapy) OUTPATIENT [id number] ANNE CHACON 11/01 Released w/o [employer](P hysical Therapy ) Medical Group(PHA Cell) OUTPATIENT [id number] annual PHA FELICIA MONTIEL 11/02 Released w/o [employer](P SAMUELS Cell) [facility](FP Rok II) OUTPATIENT [id number] knee f/u needs profile EMANI TURNER 11/22 Released w/o [employer](F P Rok II) [facility] Group(Man aged Care Admin) TELE CONSULT [id number] Pt. referre d to boogie Donato red request ing Nuclear medicin e procedu reIlia SHANIKA TANMAYDOREEN William 02/28 Medical Group([facility] Care Admin) [facility] Group(FP Rok I) TELE CONSULT [id number] New Medicat ion KELLY CARLIN Kitty 05/22 Medical Group(F P Rok I) [facility] Group(FP Rok I) OUTPATIENT [id number] pt experie ncing headANNAMARIE Aguila 08/26 Released w/o [employer](F P Rok I) [facility](Phy sical Therapy) OUTPATIENT [id number] upper back pain (betwee n ade kitty arrieta) MARY KAY MYERS 09/02 Released w/o [employer](P hysical Therapy ) [facility] Group(Phy sical Therapy) OUTPATIENT [id number] SAYRA GILLIAM 09/03 Released w/o [employer](P hysical Therapy ) [facility] Group(FP Rok I) TELE CONSULT [id number] pt request ing renewal referANNAMARIE Deras 09/04 Medical Group(F P Rok I) [facility] Group(Phy sical Therapy) OUTPATIENT [id number] SAYRA GILLIAM 09/05 Released w/o [employer](P hysical Therapy ) [facility] Group(Phy sical Therapy) OUTPATIENT [id number] SAYRA GILLIAM 09/10 Released w/o [employer](P hysical Therapy ) Medical Group(Phy sical Therapy) OUTPATIENT [id number] SAYRA GILLIAM 09/15 Released w/o [employer](P hysical Therapy ) [facility](Phy sical Therapy) OUTPATIENT [id number] MARY KAY MYERS 09/18 Released w/o [employer](P hysical Therapy ) [facility](Phy sical Therapy) OUTPATIENT [id number] SAYRA GILLIAM 10/02 Released w/[employer](P hysical Therapy ) [facility](Phy sical Therapy) OUTPATIENT [id number] SAYRA GILLIAM 10/07 Released w/[employer](P hysical Therapy ) [facility](Phy sical Therapy) OUTPATIENT [id number] SAYRA GILLIAM 10/09 Released w/[employer](P hysical Therapy ) [facility](Phy sical Therapy) OUTPATIENT [id number] SAYRA GILLIAM 10/13 Released w/o [employer](P hysical Therapy ) [facility] Group(FP Rok I) OUTPATIENT [id number] neck pain x 3days ANNAMARIE MARIE 11/28 Released with Work/[employer](F P Rok I) [facility](FP Rok I) TELE CONSULT [phone] Ortho consult ation follow up KELLY CARLIN 12/05 Medical Group(F P Rok I) [facility] Group(FP Rok I) OUTPATIENT [id number] Exhaust ion, feels like not sleepin g through the night ANNAMARIE MARIE 12/12 Released w/[employer](F P Rok I) [facility](PHA Cell) OUTPATIENT [id number] ROYER Nichole 01/15 Released w/[employer](P SAMUELS Cell) [facility](FP Rok I) TELE CONSULT [phone] AD states needs profile updated . KELLY CARLIN 02/25 [facility] Group(F P Rok I) [facility](FP Rok I) OUTPATIENT [id number] Profile Re-AMARIS Scott 02/27 Released w/[employer](F P Rok I) [facility](FP Rok I) TELE CONSULT [id number] would like to schedul e f/u appt for profile DIERINGER, KELLY R 05/11 Medical Group(F P Rok I) [facility](FP Rok I) TELE CONSULT [phone] Appt Resched KELLY Tapia R 05/26 [facility] Group(F P Rok I) [facility](FP Rok I) OUTPATIENT [id number] Profile Reeval/ Poss MEB ANNAMARIE MARIE 05/29 Released with [employer](F P Rok I) [facility](Phy sical Therapy) OUTPATIENT [id number] ANKYLOS ING SPONDYL ITIS SOHA BAUTISTA 06/08 Released w/o [employer](P hysical Therapy ) [facility] Group(FP Rok I) OUTPATIENT [id number] Er f/u SVN 2 Jun for broke finger. ANNAMARIE MARIE 06/19 Released w/o [employer](F P Rok I) [facility](FP Rok I) OUTPATIENT [id number] Exhaust ion, fatigue , headach es, sleepin g issues GERRI HARMAN 09/09 Released w/o [employer](F P Rok I) [facility] Group(FP Rok I) OUTPATIENT [id number] states sep physica l GERRI HARMAN 11/09 Released w/[employer](F P Rok I) Medical [facility](Phy sical Therapy) OUTPATIENT [id number] Thoraci c Back Pain SRI COLLINS 09/14 Released w/[employer](P hysical Therapy ) [place] [facility] Outpatient Encounter [id number] VIV BRYAN 07/15 [place] [facility] [place] [facility] Outpatient Encounter [id number] Diagnos is: ICD-10- CM J02.9 Acute pharyng itis, unspeci fied DENEEN ALICEA 07/15 [place] [facility] OFF/OP EST MAY X REQ PHY/QHP [id number] Diagnos is: ICD-10- CM H92.20 Otorrha ingrid, unspeci fied ear Evelin SCHULTZ 07/[address] [facility] OFFICE O/P EST LOW 20 MIN [id number] Diagnos is: ICD-10- CM H65.03 Acute serous otitis media, bilater al BECK,KRI STEL G 07/16 [facility] OFF/OP EST MAY X REQ PHY/QHP [id number] Diagnos is: ICD-10- CM H92.09 Otalgia , unspeci fied ear Evelin SCHULTZ 07/23 [facility] OFFICE O/P EST LOW 20 MIN [id number] Diagnos is: ICD-10- CM H60.91 Unspeci fied otitis externa , right ear BECK,MARIA ANTONIAI STEL G 07/23 [facility] OFF/OP EST MAY X REQ PHY/QHP [id number] [id number] Diagnos is: ICD-10- CM H92.03 Otalgia , bilater al CHEYENNE DUARTE 07/29 [facility] OFF/OP EST MAY X REQ PHY/QHP [id number] Diagnos is: ICD-10- CM H92.09 Otalgia , unspeci fied ear Evelin SCHULTZ 08/05 [facility] OFF/OP EST MAY X REQ PHY/QHP [id number] [id number] Diagnos is: ICD-10- CM J32.8 Other chronic sinusit is [facility]ONE [facility] OFFICE O/P EST LOW 20 MIN [id number] [id number] Diagnos is: ICD-10- CM R13.11 Dysphag ia, oral phase ARUN SEALSINE R 09/09 [facility] Outpatient Encounter [id number] 09/23 [facility] Outpatient Encounter [id number] 09/24 [facility] Outpatient Encounter [id number] 09/25 [facility] Outpatient Encounter [id number] 10/25 [facility] Outpatient Encounter [id number] ARUN SEALS R 11/14 [facility] Outpatient Encounter [id number] Diagnos is: ICD-10- CM Z00.00 Encntr for general adult medical exam w/o abnorma l finding s ARUN SEALS R 11/14 [facility] [id number] 12/02 [facility] Outpatient Encounter [id number] 12/16 [facility] Outpatient Encounter [id number] ARUN SEALS R 02/26 [facility] [place] [facility] OFF/OP EST MAY X REQ PHY/QHP [id number] Diagnos is: ICD-10- CM R07.82 Interco stal pain Evelin SCHULTZ 02/26 [place] [facility] Outpatient Encounter [id number] 02/26 [place] [facility] [place] [facility] OFF/OP EST MAY X REQ PHY/QHP [id number] [id number] Diagnos is: ICD-10- CM M79.641 Pain in right hand ARUN SEALSINE R 05/14 [facility] OFF/OP EST MAY X REQ PHY/QHP [id number] Diagnos is: ICD-10- CM M79.671 Pain in right foot BOONE,JIM BURAK D 08/22 [place] [facility] OFFICE O/P EST SF 10 MIN [id number] Diagnos is: ICD-10- CM R52 Pain, unspeci fied CHANDRA,MAHENDRA ER E III 08/22 [facility] OFF/OP EST MAY X REQ PHY/QHP [id number] Diagnos is: ICD-10- CM H10.9 Unspeci fied conjunc tivitis CUSTRED,TO RRI J 08[facility] Outpatient Encounter [id number] ARUN SEALS THERINE R 08/27 [facility] OFFICE O/P EST LOW 20 MIN [id number] Diagnos is: ICD-10- CM H10.32 Unspeci fied acute conjunc tivitis , left eye CHANDRA,MAHENDRA ER E III 08/27 [place] [facility] Procedures Combined list of: 1) Procedures from Department of Veterans Affairs facilities going back up to thelast 18 months, not all VA non-surgical procedures are included; 2) All procedures from the Department of Defense facilities. Procedure Procedure Type Code Date Perfomer Comments [facility] e RANGE OF MOTION MEASUREMENTS AND REPORT (SEPARATE PROCEDURE); EACH EXTREMITY (EXCLUDING HAND) OR EACH TRUNK SECTION (SPINE) 06/09/19 09 DoD SCREENING TEST, PURE TONE, AIR ONLY 01/16/20 08 DoD APPLICATION OF A MODALITY TO 1 OR MORE AREAS; HOT OR COLD PACKS 10/14/19 08 DoD APPLICATION OF A MODALITY TO 1 OR MORE AREAS; HOT OR COLD PACKS 10/10/19 08 DoD APPLICATION OF A MODALITY TO 1 OR MORE AREAS; HOT OR COLD PACKS 10/08/19 08 DoD APPLICATION OF A MODALITY TO 1 OR MORE AREAS; HOT OR COLD PACKS 10/03/19 08 DoD MANUAL THERAPY TECHNIQUES (EG, MOBILIZATION/ MANIPULATION, MANUAL LYMPHATIC DRAINAGE, MANUAL TRACTION), 1 OR MORE REGIONS, EACH 15 MINUTES 09/19/19 08 DoD APPLICATION OF A MODALITY TO 1 OR MORE AREAS; HOT OR COLD PACKS 09/16/19 08 DoD APPLICATION OF A MODALITY TO 1 OR MORE AREAS; HOT OR COLD PACKS 09/11/19 08 DoD APPLICATION OF A MODALITY TO 1 OR MORE AREAS; HOT OR COLD PACKS 09/06/19 08 DoD APPLICATION OF A MODALITY TO 1 OR MORE AREAS; HOT OR COLD PACKS 09/04/19 08 DoD PHYSICAL THERAPY EVALUATION 09/03/19 08 DoD SCREENING TEST OF VISUAL ACUITY, QUANTITATIVE, BILATERAL 11/03/19 07 DoD PHYSICAL THERAPY EVALUATION 11/02/19 07 DoD APPLICATION OF A MODALITY TO 1 OR MORE AREAS; HOT OR COLD PACKS 10/26/19 06 DoD APPLICATION OF A MODALITY TO 1 OR MORE AREAS; HOT OR COLD PACKS 10/18/19 06 DoD THERAPEUTIC ACTIVITIES, DIRECT (ONE-ON-ONE) PATIENT CONTACT (USE OF DYNAMIC ACTIVITIES TO IMPROVE FUNCTIONAL PERFORMANCE), EACH 15 MINUTES 10/12/19 06 DoD SCREENING TEST OF VISUAL ACUITY, QUANTITATIVE, BILATERAL 09/21/19 06 DoD PSYCHIATRIC EVALUATION OF HOSPITAL RECORDS, OTHER PSYCHIATRIC REPORTS, PSYCHOMETRIC AND/OR PROJECTIVE TESTS, AND OTHER ACCUMULATED DATA FOR MEDICALDIAGNOSTIC PURPOSES 11/21/19 05 DoD PHYSICAL THERAPY RE-EVALUATION 06/19/19 04 DoD Exercises A isted Exercises For ROM Exercises Assisted Exercises For ROM [id number] 06/09/19 09 SOHA BAUTISTA [facility] Audiogram (Screening) Audiogram (Screening) 57731 01/16/20 08 ROYER DONOVAN Audiogram-WNL See form [id number] [facility] Screening Test Of Visual Acuity, Quantitative, Bilateral Screening Test Of Visual Acuity, Quantitative, Bilateral 98440 01/16/20 08 ZIONROYER OZUNA Yoseph DVA performed-Resul ts OU 20/20 uncorrected See form [id number] [facility] Modalities Heat Hot Packs Modalities Heat Hot Packs 12167 10/14/19 08 SAYRA GILLIAM X20MIN TO MIDBACK WITH E-STIM BY [employer] Modalities Electrical Stimulation Unattended Modalities Electrical Stimulation Unattended 43031 10/14/19 08 SAYRA GILLIAM E-STIM (IFC) TO MIDBACK IN X PATTERN, HI/LO, SWEEP BY TECH X20MIN DoD Modalities Electrical Stimulation Unattended Modalities Electrical Stimulation Unattended 43297 10/10/19 08 SAYRA GILLIAM E-STIM (IFC) TO MIDBACK IN X PATTERN, HI/LO, SWEEP BY TECH X20MIN DoD Modalities Heat Hot Packs Modalities Heat Hot Packs 08941 10/10/19 08 SAYRA GILLIAM X20MIN TO BACK WITH E-STIM BY [employer] ([employer]) [facility] Modalities Heat Hot Packs Modalities Heat Hot Packs 18474 10/08/19 08 SAYRA GILLIAM X20MIN TO BACK WITH E-STIM BY [employer] ([employer]) [facility] Modalities Electrical Stimulation Unattended Modalities Electrical Stimulation Unattended 88423 10/08/19 08 SAYRA GILLIAM E-STIM (SERBIAN 10:10) TO UPPER/MID BACK BY TECH X20MIN DoD Modalities Electrical Stimulation Unattended Modalities Electrical Stimulation Unattended 66326 10/03/19 08 SAYRA GILLIAM E-STIM (SERBIAN 10 ON 10 OFF) TO MID BACK BY TECH X20MIN DoD Modalities Heat Hot Packs Modalities Heat Hot Packs 05393 10/03/19 08 SAYRA GILLIAM X20MIN TO BACK WITH E-STIM BY [employer] ([employer]) [facility] Physical Therapy Mobilization Joint Physical Therapy Mobilization Joint 39372 09/19/19 08 MARY KAY MYERS Physical Medicine Physical Therapy Re-Evaluation Physical Medicine Physical Therapy Re-Evaluation 72956 09/19/19 08 MARY KAY MYERS Modalities Heat Hot Packs Modalities Heat Hot Packs 20658 09/16/19 08 SAYRA GILLIAM X20MIN TO MID BACK WITH E-STIM BY TECH DoD Modalities Electrical Stimulation Unattended Modalities Electrical Stimulation Unattended 01270 09/16/19 08 SAYRA GILLIAM E-STIM (IFC) TO MID BACK IN X PATTERN, HI/LO, SWEEP BY TECH X20MIN DoD Modalities Electrical Stimulation Unattended Modalities Electrical Stimulation Unattended 56603 09/11/19 08 SAYRA GILLIAM E-STIM (IFC) TO MID BACK IN X PATTERN, HI/LO, SWEEP BY TECH X20MIN DoD Modalities Heat Hot Packs Modalities Heat Hot Packs 31931 09/11/19 08 SAYRA GILLIAM X20MIN TO BACK WITH E-STIM BY TECH [employer] Modalities Heat Hot Packs Modalities Heat Hot Packs 47399 09/06/19 08 SAYRA GILLIAM X20MIN TO LOW BACK WITH E-STIM BY TECH DoD Modalities Electrical Stimulation Unattended Modalities Electrical Stimulation Unattended 54977 09/06/19 08 SAYRA GILLIAM E-STIM (QP IFC) TO LOW BACK IN X PATTERN, HI/LO, SWEEP BY TECH X20MIN DoD Modalities [employer] Hot [employer]acks Modalities Heat Hot Packs 20038 09/04/19 08 SAYRA GILLIAM X20MIN TO MIDBACK WITH E-STIM DoD Modalities Electrical Stimulation Unattended Modalities Electrical Stimulation Unattended 15343 09/04/19 08 SAYRA GILLIAM E-STIM (QP IFC) TO MID BACK (T1-T9) IN X PATTERN, HI/LO, SWEEP BY TECH X20MIN DoD Physical Medicine Physical Therapy Evaluation Physical Medicine Physical Therapy Evaluation 83610 09/03/19 08 MARY KAY MYERS Screening Test Of Visual Acuity, Quantitative, Bilateral Screening Test Of Visual Acuity, Quantitative, Bilateral 87501 11/03/19 07 FELICIA MONTIEL Audiogram (Screening) Audiogram (Screening) 68480 11/03/19 07 FELICIA MONTIEL DoD Physical Medicine Physical Therapy Evaluation Physical Medicine Physical Therapy Evaluation 66458 11/02/19 07 ANNE CHACON DoD Modalities Heat Hot Packs Modalities Heat Hot Packs 37622 10/26/19 06 VLADIMIR DIEHL DoD Modalities Electrical Stimulation Unattended Modalities Electrical Stimulation Unattended 92096 10/26/19 06 VLADIMIR DIEHL E-STIM. ([facility]) HI/LO TARGET SWEEP x20MIN TO BILATERAL C-7 AND T-7 REGION IN X PATTERN DoD Modalities Electrical Stimulation Unattended Modalities Electrical Stimulation Unattended 15819 10/18/19 06 VLADIMIR DIEHL E-STIM. (IF) HI/LO TARGET SWEEP x20MIN TO BILATERAL C-7 AND T-7 REGION IN X PATTERN DoD Modalities Heat Hot Packs Modalities Heat Hot Packs 94276 10/18/19 06 VLADIMIR DIEHL MH IN SUPINE [facility] Physical Medicine Physical Therapy Evaluation Physical Medicine Physical Therapy Evaluation 73558 10/12/19 06 MARY KAY MYERS [facility] Physical Therapy Mobilization Joint Physical Therapy Mobilization Joint 43990 10/12/19 06 MARY KAY MYERS Received 10 minutes of manual therapy to thoracic spine from therapist - [facility]. [facility] PT A e ment Kinetic Training PT Assessment Kinetic Training 65534 10/12/19 06 MARY KAY MYERS Received 10 minutes of individual therapeutic exercise from therapist - [facility]. [facility] Screening Test Of Visual Acuity, Quantitative, Bilateral Screening Test Of Visual Acuity, Quantitative, Bilateral 51828 09/21/19 06 MICHAEL PURI [facility] Psychiatric Evaluation Review of Records and Reports Psychiatric Evaluation Review of Records and Reports 11232 11/21/19 05 ERIK STEWART [facility] Social History Combined list of available smoking, tobacco, and other social history from Department of Defense and Veterans Affairs facilities. Social History Type Response Date Comment Sourc e Tobacco smoking status NHIS VA-TOBACCO USER EVERY DAY 11/15/2023 [facility] History of tobacco use VA-TOBACCO USE > 15 LESS THAN 30 YEARS 11/15/2023 [facility] History of tobacco use VA-TOBACCO USE WI 30 MIN OF WAKEUP 11/14/2022 [facility] History of tobacco use VA-TOBACCO FORMER USER 12/28/2021 [facility] History of tobacco use VA-TOBACCO USER S OME DAYS 02/09/2020 [facility] History of tobacco use VA-TOBACCO USER S OME DAYS 06/04/2018 [place] [facility] This section is an empty social history section. [facility] Plan of Care List of future care activities from Department of Veterans Affairs facilities. Additional future care activities may be listed in the Assessment and Plan section. Date/Time Care Activity Care Activity Detail Facili ty 11/04/2024 AMBULATORY - MEDICINE AMBULATORY - MEDICI [facility]
--- NOTE | 2024-11-04 12:38 | W.ED.ABDPA2 ---
HPI - Abdominal Pain General: Chief Complaint: Abdominal Pain Stated Complaint: stomach issues, cramping and blood in stool Time Seen by Provider: 11/04/24 12:16 Source: patient Mode of arrival: ambulatory Limitations: no limitations History of Present Illness: Patient is a nice 43-year-old male presents to ED today with a complaint of abdominal pain. He states he first began noticing abdominal pain last (approximately 4 days or so ago). States pain was located throughout his lower abdomen but states it is now more generalized. He states on Sunday he had episodes of diaphoresis due to the discomfort. He also began noticing mucousy like stools with bright red blood streaks. He states he is not straining with defecation. He does not complain of painful defecation. He has felt very nauseous but has not had any episodes of vomiting. No reported fevers. He states he does have IBS and lactose intolerance. MD elicited complaint: abdominal pain Onset (ago): day(s) Pain Consistency: constant Location: Diffuse Severity: moderate Quality: cramping Radiation: none Migration to: no migration Exacerbating factors: eating Relieving factors: nothing Associated Symptoms: Reports hematochezia and nausea; Denies chills, dysuria, fever(s), hematuria and vomiting Related Data Home Medications ?Medication ?Instructions ?Recorded ?Confirmed [id number]-epa-fish oil-vit D3 300 cap PO 04/07/19 06/24/19 mg-1,000 mg-1,000 unit capsule (Fish Oil-Vit D3) omega-3 fatty acids 1,000 mg 1,000 mg PO QDAY 04/07/19 06/24/19 capsule (Fish Oil Concentrate) Previous Rx's ?Medication ?Instructions ?Recorded prednisone 10 mg tablet 10 mg PO DAILY 7 days #27 tabs 11/04/24 Allergies Allergy/AdvReac Type Severity Reaction Status Date / Time coconut Allergy unknown Verified 11/04/24 12:19 mushroom Allergy Unknown Verified 11/04/24 12:19 palm oil Allergy unknown Verified 11/04/24 12:19 Review of Systems Const: Reports: fatigue; Denies: fever(s), chills, body aches or malaise Card: Denies: chest pain Resp: Denies: dyspnea GI: Reports: abdominal pain, nausea, hematochezia and mucus in stool; Denies: vomiting or rectal pain : Denies: flank pain, dysuria or hematuria Musc: Denies: neck pain, back pain, extremity pain, extremity swelling, joint pain, joint swelling or joint redness Skin/Breast: Denies: rash Neuro: Denies: headache(s), numbness in extremities, weakness in extremities, sensory changes or dizziness PFSH ED PFSH: Medical History Cervical radiculopathy Strain of right biceps Chronic pain of right elbow Cubital tunnel syndrome on right Carpal tunnel syndrome of right wrist Social History Smoking and tobacco/nicotine status: current every day tobacco/nicotine user (chew daily) smokeless tobacco Smokeless tobacco user: chewing tobacco Alcohol intake: current Alcohol intake frequency: 0-2 Drinks per Day Substance/Drug Use: never Physical Exam Const: COMMON NORMALS: no acute distress, average body habitus, patient oriented x3, no limitations, healthy appearing, alert and well nourished GENERAL APPEARANCE: cooperative ORIENTATION/CONSCIOUSNESS: Yes awake, Yes oriented to person, Yes oriented to place and Yes oriented to time Eye: COMMON NORMALS: no scleral icterus Resp: COMMON NORMALS: normal respiratory effort and clear to auscultation bilaterally AUSCULTATION: clear to auscultation bilaterally Cardio: COMMON NORMALS: regular rate and regular rhythm RATE: regular rate RHYTHM: regular rhythm GI: COMMON NORMALS: Normal to inspection, nondistended, normoactive bowel sounds present, Soft to palpation, No hepatosplenomegaly present and no masses INSPECTION: Yes normal to inspection AUSCULTATION: Yes normoactive bowel sounds PALPATION: Yes Soft to palpation, Yes Tenderness to palpation present (GI) (lower abdomen, suprapubic/LLQ), No Guarding due to palpation present (GI), No Rigid due to palpation and Yes No hepatosplenomegaly present RECTAL EXAM: Yes deferred : COMMON NORMALS: Yes no CVA tenderness BLADDER/KIDNEY EXAM: Yes no CVA tenderness Back/Pelvis: COMMON NORMALS: no CVA tenderness, thoracic and lumbar spine normal to inspection and no thoracic nor lumbar tenderness Extremity: GENERAL: Yes normal exam except as noted Neuro: COMMON NORMALS: patient oriented x3, moves all extremities, no focal motor deficits, no sensory deficits noted and gait normal SENSORIUM/ORIENTATION: Yes alert, Yes oriented to person, Yes oriented to place and Yes oriented to time Skin: COMMON NORMALS: no rashes or lesions noted GENERAL SKIN EXAM: no rashes or lesions noted Course Vital Signs: Vital signs: Vital Signs Temperature 98.1 F 11/04/24 12:11 Pulse Rate 93 11/04/24 12:11 Blood Pressure 143/96 11/04/24 12:11 Pulse Oximetry 98 11/04/24 12:11 Oxygen Delivery Me thod Room Air 11/04/24 12:11 MDM - Abdominal Pain Medical Decision Making Patient is a nice 43-year-old male here for lower abdominal pain over the past several days. He has complaint of mucus/bloody stools. Vital signs are stable. Blood work overall is unremarkable. CT scan showing nonspecific proctitis. Patient does not engage in any type of receptive anal intercourse. This point he does not require antimicrobial therapy. Will place him on systemic steroids over the next several days and have him follow-up with general surgery/GI for further evaluation. CT scan also showing incidental left femoral head necrosis. Patient does report chronic hip pains. Will place referral to have him follow-up with orthopedics as well. Return to ED precautions discussed. Medical Records I reviewed the patient's medical records. Lab Data I reviewed the patient's lab results. 11/04/24 13:10 11/04/24 13:10 Labs/Radiology: Radiology Impressions Abdomen/Pelvis CT 11/04/24 12:48 IMPRESSION: 1. Moderate rectal wall thickening. The finding is consistent with nonspecific proctitis. Clinical correlation to determine the specific etiology is recommended. 2. Fatty infiltration of the liver. 3. Right renal benign cysts. No follow-up imaging is recommended. 4. Focal left femoral head osteonecrosis. COMMENTS: Consistent with the [employer]'s Incidental Findings Committee white paper (J Am Patricia Radiol 2018): Any incidental renal lesion less than 1 cm or classified as too small to characterize, or any incidental cystic renal lesion characterized as simple-appearing, is likely benign. No follow-up imaging is recommended for these lesions per consensus recommendations based on imaging criteria. Laboratory Results WBC 6.49 10^3/uL (3.29-11.43) 11/04/24 13:10 RBC 4.91 10^6/uL (3.85-5.65) 11/04/24 13:10 Hgb 14.80 g/dL (11.27-16.99) 11/04/24 13:10 Hct 44.4 % (37-53) 11/04/24 13:10 MCV 90.4 fl (82-101) 11/04/24 13:10 MCH 30.1 pg (27-33) 11/04/24 13:10 MCHC 33.3 g/dL (30-55) 11/04/24 13:10 RDW 12.9 % (12.1-15.1) 11/04/24 13:10 Plt Count 213 10^3/cmm (157-399) 11/04/24 13:10 MPV 10.3 fL (7.4-10.4) 11/04/24 13:10 Neut % (Auto) 60.1 % 11/04/24 13:10 Lymph % (Auto) 27.7 % 11/04/24 13:10 [place] % (Auto) 10.2 % 11/04/24 13:10 Eos % (Auto) 1.2 % 11/04/24 13:10 Baso % (Auto) 0.6 % 11/04/24 13:10 Neut # (Auto) 3.90 10^3/uL (1.8-7.7) 11/04/24 13:10 Lymph # (Auto) 1.8 10^3/uL (0.8-4.8) 11/04/24 13:10 [place] # (Auto) 0.7 10^3/uL (0.2-0.9) 11/04/24 13:10 Eos # (Auto) 0.1 10^3/uL (0.0-0.8) 11/04/24 13:10 Baso # (Auto) 0.0 10^3/uL (0.0-0.1) 11/04/24 13:10 Nucleated RBC % (auto) 0 % 11/04/24 13:10 Nucleated RBCs # 0.0 /100WBC 11/04/24 13:10 PT 12.90 SECONDS (12.1-14.9) 11/04/24 13:10 INR 0.90 (0.8-1.2) 11/04/24 13:10 Sodium 135 mmol/L (136-145) L 11/04/24 13:10 Potassium 4.1 mmol/L (3.5-5.1) 11/04/24 13:10 Chloride 100 mmol/L (98-107) 11/04/24 13:10 Carbon Dioxide 25 mmol/L (22-29) 11/04/24 13:10 Anion Gap 14.1 (5-19) 11/04/24 13:10 BUN 10 mg/dL (6-20) 11/04/24 13:10 Creatinine 0.8 mg/dL (0.7-1.2) 11/04/24 13:10 GFR Calculation 105.0 mL/min (90-130) 11/04/24 13:10 Glucose 97 mg/dL (65-115) 11/04/24 13:10 Calculated Osmolality 279 mOsm/kg (285-295) L 11/04/24 13:10 Calcium 9.0 mg/dL (8.5-10.5) 11/04/24 13:10 Total Bilirubin 0.4 mg/dL (0.15-1.2) 11/04/24 13:10 AST 40 U/L (0-40) 11/04/24 13:10 ALT 81 U/L (0-41) H 11/04/24 13:10 Alkaline Phosphatase 50 U/L (40-130) 11/04/24 13:10 Total Protein 7.4 g/dL (6.6-8.7) 11/04/24 13:10 Albumin 4.5 g/dL (3.5-5.2) 11/04/24 13:10 Globulin 2.9 g/dL (1.3-4.6) 11/04/24 13:10 Lipase 25 U/L (13-60) 11/04/24 13:10 Urine Color Yellow (Yellow) 11/04/24 13:40 Urine Appearance Clear (CLEAR) 11/04/24 13:40 Urine pH 7.0 (5-7) 11/04/24 13:40 Ur Specific [place] 1.025 (1.005-1.030) 11/04/24 13:40 Urine Protein Negative (Negative) 11/04/24 13:40 Urine Glucose (UA) Negative (Normal) 11/04/24 13:40 Urine Ketones Negative (Negative) 11/04/24 13:40 Urine Blood Negative (Negative) 11/04/24 13:40 Urine Nitrate Negative (Negative) 11/04/24 13:40 Urine Bilirubin Negative (Negative) 11/04/24 13:40 Urine Urobilinogen 0.2 mg/dL (Negative) 11/04/24 13:40 Ur Leukocyte Esterase Negative (Negative) 11/04/24 13:40 Amorphous Sediment Not Reportable 11/04/24 13:40 All radiology interpretation(s) finalized by discharge Discharge Plan Discharge Patient Disposition: Home Clinical Impression: Acute proctitis Condition: Stable Prescriptions: New prednisone 10 mg tablet 10 mg PO DAILY 7 Days Qty: 27 0RF Rx Instructions: 6 tabs on days 1-2, 5 tabs on days 3, 4 tabs on day 4, 3 tabs on day 5, 2 tabs on day 6, 1 tab on day 7 No Action omega-3 fatty acids [Fish Oil Concentrate] 1,000 mg capsule 1,000 mg PO QDAY bt-0-nhn-epa-fish oil-vit D3 [Fish Oil-Vit D3] 300-1,000-1,000 mg-mg-unit capsule PO Discharge Orders: Discharge ED (Routine); Ordered 11/04/24 Ordered By: Renuka Castillo Referrals: Natalia Swartz FNP [Primary Care Provider, Nurse Practitioner] Patient Instructions: Proctitis (ED), Patient Portal & [facility] Instructions Activity Restrictions/Additional Instructions: As we discussed, CT scan today showing an inflammatory process involving your distal bowel referred to as proctitis. We will place you on antibiotics and recommend you follow-up with general surgery/GI for further evaluation and possible colonoscopy. I have placed a case management referral for this however you have indicated you will go through the OR for this referral. You need to return to the emergency department for onset of worsening pain, worsening bloody stools, fevers, generally feeling worse or unwell, or any other concerns you may have. Print Language: Arabic Coding Level of Care Code ED Transplant Registered Nurse for Alejandro Hoffmann
--- NOTE | 2024-11-04 12:48 | CTR_ITS ---
PROCEDURE INFORMATION: Exam: CT Abdomen And Pelvis With Contrast Exam date and time: 11/04/2024 1:22 PM Age: 43 years old Clinical indication: Complaint of abdominal pain. He states he first began noticing abdominal pain last (approximately 4 days or so ago). States pain was located throughout his lower abdomen but states it is now more generalized. He states on Sunday he had episodes of diaphoresis due to the discomfort. He also began noticing mucousy like stools with bright red blood streaks. He states he is not straining with defecation. He does not complain of painful defecation. He has felt very nauseous but has not had any episodes of vomiting. ; Additional info: Abdominal pain, cramps, bloody/mucous stool TECHNIQUE: Imaging protocol: Computed tomography of the abdomen and pelvis with contrast. Radiation optimization: All CT scans at this facility use at least one of these dose optimization techniques: automated exposure control; mA and/or kV adjustment per patient size (includes targeted exams where dose is matched to clinical indication); or iterative reconstruction. Contrast material: OMNI 350; Contrast volume: 100 ml; Contrast route: INTRAVENOUS (IV); COMPARISON: No relevant prior studies available. RADIATION DOSE METRICS: Total DLP (mGy-cm): 1001.73 FINDINGS: Liver: Moderate diffuse hypoattenuation of the liver is present consistent with hepatic steatosis. Gallbladder and biliary ducts: Normal. No calcified stones. No ductal dilation. Pancreas: Moderate pancreatic atrophy. No pancreatic mass or ductal dilatation. Spleen: Normal. No splenomegaly. Adrenal glands: Normal. No mass. Kidneys and ureters: Right renal benign cysts, largest 3.8 cm. Stomach and bowel: Moderate rectal wall thickening. Appendix: The vermiform appendix is normal. Intraperitoneal space: No free air. No significant fluid collection. Vasculature: The iliac arteries show mild bilateral atherosclerotic calcifications without evidence of aneurysm. Lymph nodes: No enlarged lymph nodes. Urinary bladder: Unremarkable as visualized. Reproductive: Unremarkable as visualized. Bones/joints: Anterior bridging left sacroiliac joint marginal osteophytes. Sclerotic marginated benign 6.4 mm lesion inferior right femoral neck. Similar 5.8 mm lesion posterior right iliac bone. Focal left femoral head osteonecrosis, without subchondral collapse anterior femoral head measuring approximately 20.6 x 13.1 x 20.9 mm. Soft tissues: A small left inguinal hernia is present containing only intra-abdominal fat. A tiny paraumbilical hernia containing only abdominal fat is noted. CT/CT abdomen pelvis w con* [id number] IMPRESSION: 1. Moderate rectal wall thickening. The finding is consistent with nonspecific proctitis. Clinical correlation to determine the specific etiology is recommended. 2. Fatty infiltration of the liver. 3. Right renal benign cysts. No follow-up imaging is recommended. 4. Focal left femoral head osteonecrosis. COMMENTS: Consistent with the [employer]'s Incidental Findings Committee white paper (J Am Patricia Radiol 2018): Any incidental renal lesion less than 1 cm or classified as too small to characterize, or any incidental cystic renal lesion characterized as simple-appearing, is likely benign. No follow-up imaging is recommended for these lesions per consensus recommendations based on imaging criteria.
[2024-11-04 13:22] LABS: Hematocrit 44.4 % (37-53); Hemoglobin 14.80 g/dL (11.27-16.99); Mean Corpuscular HGB Conc 33.3 g/dL (30-55); Mean Corpuscular Hemoglobin 30.1 pg (27-33); Mean Corpuscular Volume 90.4 fl (82-101); Nucleated Red Blood Cells % 0 %; Platelet Count 213 10^3/cmm (157-399); Red Blood Count 4.91 10^6/uL (3.85-5.65); White Blood Count 6.49 10^3/uL (3.29-11.43)
[2024-11-04] MEDS: iohexol 350 mg/mL 500 mL Btl (per mL) IV (13:25)
[2024-11-04 13:35] LABS: INR 0.90 (0.8-1.2); Prothrombin Time 12.90 SECONDS (12.1-14.9)
[2024-11-04 13:41] LABS: Alanine Aminotransferase 81 U/L (0-41); Albumin Level 4.5 g/dL (3.5-5.2); Alkaline Phosphatase 50 U/L (40-130); Anion Gap 14.1 (5-19); Aspartate Amino Transferase 40 U/L (0-40); Blood Urea Nitrogen 10 mg/dL (6-20); Calcium 9.0 mg/dL (8.5-10.5); Carbon Dioxide 25 mmol/L (22-29); Chloride 100 mmol/L (98-107); Creatinine Clr Calc Pharmacy 140.2507; Globulin 2.9 g/dL (1.3-4.6); Glucose 97 mg/dL (65-115); Lipase 25 U/L (13-60); Osmolality Calculated 279 mOsm/kg (285-295); Potassium 4.1 mmol/L (3.5-5.1); Sodium 135 mmol/L (136-145); Total Protein 7.4 g/dL (6.6-8.7)
[2024-11-04 13:53] LABS: Add Urine Microscopic? NO
[2024-11-04 13:55] LABS: Glucose Urine UA Negative (Normal); Nitrate Urine Negative (Negative); Specific Gravity, Urine 1.025 (1.005-1.030)
[2024-11-04 14:11] LABS: Charge for UA Resulting for Rev
[2024-11-04 15:24] VITALS: BP 118/88; PULSE 78; O2SAT 96
[2024-11-04 15:28] VITALS: BP 118/82; PULSE 77; O2SAT 98
--- NOTE | 2024-11-06 09:41 | DCPLANNER ---
messaged gen surg and ortho for er f/u
== END 2024-11-04 15:49 | disposition home or self-care (01) ==
PROVIDERS: Emergency Medicine; Emergency Provider Physician Assistant; PCP Nurse Practitioner
DX: K62.89 Other specified diseases of anus and rectum (principal); F17.220 Nicotine dependence, chewing tobacco, uncomplicated
CPT/HCPCS: 36415; 74177; 80053; 81003; 83690; 85025; 85610; 99285

== ENCOUNTER → 2024-11-26 12:38 | Outpatient (BNVA) | payer OTHER, SELFPAY | PROVIDERS: PCP Nurse Practitioner; Visit Provider Surgery | DX: Z12.11 Encounter for screening for malignant neoplasm of colon (principal) | CPT/HCPCS: 99204 ==

== ENCOUNTER 2024-12-11 07:56 | Day surgery (SDC) | payer OTHER, SELFPAY ==
[2024-12-11 08:13] VITALS: BP 146/85; PULSE 107; RESP 18; TEMP 36.2; O2SAT 97; BMI 34.0
--- NOTE | 2024-12-11 08:32 | P.HPUD_ITS ---
Surgery/Procedure H&P Update DATE OF PROCEDURE: December 11, 2024 DATE H&P PERFORMED: 11/26/24 H&P UPDATE INFORMATION: I have reviewed H&P completed within last 30 days, I have examined patient prior to procedure, No changes to prior documentation, H&P is in [facility] EMR on date indicated and Risks and benefits of the procedure reviewed PLANNED PROCEDURE: Operation Date: 12/11/24 09:30 Proposed Procedures p Colonoscopy [id number] [id number] Z12.11(Not Applicable) - Madhu Burgos MD
--- NOTE | 2024-12-11 08:58 | ANES.PREANE2 ---
Pre-Anesthetic Assessment Height/Weight: Height 1.75 m Weight 104.326 kg Temp Pulse Resp BP Pulse Ox O2 Del Method 97.2 F L 107 H 18 146/85 97 Room Air 12/11/24 08:13 12/11/24 08:13 12/11/24 08:13 12/11/24 08:13 12/11/24 08:13 12/11/24 08:13 Operation Date: 12/11/24 09:30 Proposed Procedures p Colonoscopy [id number] [id number] Z12.11(Not Applicable) - Madhu Burgos MD Familial anesthetic complications: none Was Beta Richard taken within 24 hours: N/A Was Clonidine taken within 24 hours: N/A Last intake: Intake Last Liquid Date 12/10/24 Last Liquid Time 23:45 Last Solid Date 12/09/24 Last Solid Time 22:00 Social No alcohol and No tobacco Exam alert, oriented x 3, clear to auscultation bilaterally and regular rate & rhythm Airway Mallampati: Class II Dentition: full Anesthetic Plan ASA status: 1 Anesthesia: MAC Risk of > 500 ml blood loss (7ml/kg in children): No Other Pertinent Information Patient stated he either scratched his eye or got an irritant in his eye and went to ER for steroids to help bring down swelling yesterday. Improved today, not back to baseline. Medications/Allergies Home Medications ?Medication ?Instructions ?Recorded ?Confirmed ?Last Taken ?Type omega-3 fatty acids 1,000 mg 1,000 mg PO QDAY 04/07/19 12/11/24 12/09/24 History capsule (Fish Oil Concentrate) pantoprazole 40 mg tablet,delayed 40 mg PO DAILY 11/26/24 12/11/24 12/09/24 History release Allergies Allergy/AdvReac Type Severity Reaction Status Date / Time coconut Allergy unknown Verified 12/11/24 08:12 mushroom Allergy Unknown Verified 12/11/24 08:12 palm oil Allergy unknown Verified 12/11/24 08:12 Current Medications Generic Name Dose Route Start Last Admin Trade Name Freq PRN Reason Stop Dose Admin Sodium Chloride 1,000 mls @ 15 mls/hr 12/11/24 07:59 12/11/24 08:23 Sodium Chloride 0.9% IV 12/12/24 07:58 15 mls/hr .Q24H PRN Administration COLONOSCOPY FLUIDS PFSH Anesthesia Medical History Cervical radiculopathy Strain of right biceps Chronic pain of right elbow Cubital tunnel syndrome on right Carpal tunnel syndrome of right wrist Social History Smoking and tobacco/nicotine status: never used tobacco/nicotine Alcohol intake: current Alcohol intake frequency: 0-2 Drinks per Day Substance/Drug Use: never
[2024-12-11 10:10] VITALS: BP 112/85; PULSE 91; RESP 18; TEMP 36.1; O2SAT 97
[2024-12-11 10:28] VITALS: BP 135/86; PULSE 84; RESP 18; O2SAT 95
--- NOTE | 2024-12-11 10:35 | ANE.PACU2 ---
Inpatient post-anesthesia follow up: Airway intact: Yes Vital signs: Temperature 97 F Pulse Rate 84 Respiratory Rate 18 Blood Pressure 135/86 Pulse Oximetry 95 Oxygen Delivery Me thod Room Air Oxygen Flow Rate Fraction of Inspir ed Oxygen Hydration adequate: Yes Nausea and vomiting: No Pain level: 1 Mental status: Baseline
== END 2024-12-11 10:37 | disposition home or self-care (01) ==
PROVIDERS: PCP Nurse Practitioner; Visit Provider Surgery
PROC: 0DJD8ZZ Inspection of Lower Intestinal Tract, Via Natural or Artificial Opening Endoscopic (ICD-10-PCS; CPT 45378; principal; 2024-12-11 09:30)
DX: Z12.11 Encounter for screening for malignant neoplasm of colon (principal); D12.5 Benign neoplasm of sigmoid colon; K21.9 Gastro-esophageal reflux disease without esophagitis
CPT/HCPCS: 45380; 88305; J2250; J2704; J3010; J7030

== ENCOUNTER → 2024-12-31 11:14 | Outpatient (BNVA) | payer OTHER, SELFPAY | PROVIDERS: PCP Nurse Practitioner; Visit Provider Surgery | DX: Z09 Encounter for follow-up examination after completed treatment for conditions other than malignant neoplasm (principal); R03.0 Elevated blood-pressure reading, without diagnosis of hypertension | CPT/HCPCS: 99213 ==

== ENCOUNTER 2025-03-16 15:15 | Outpatient (CLI) | payer OTHER, SELFPAY ==
--- NOTE | 2025-03-16 15:21 | CT_ITS ---
WS: [id number] CT NECK TECHNIQUE: Contrast-enhanced CT of the neck with coronal and sagittal reformatted images. CLINICAL INFORMATION: ACUTE RECURRENT SIALOADENTITIS COMPARISON: CT 04/02/2024 DLP: 257.[address] scans at [facility] use at least one of these dose optimization techniques: automated exposure control; mA and/or kV adjustment per patient size (includes targeted exams where dose is matched to clinical indication); or iterative reconstruction. FINDINGS: No suspicious abnormalities deep to the BB in the RIGHT lower neck. Normal underlying soft tissues. Parotid glands are normal. A few intraparotid lymph nodes. Normal submandibular glands. Tongue base is normal in appearance. Normal posterior nasopharynx. Normal parapharyngeal fat. Normal epiglottis. Normal vallecula and piriform sinuses. No evidence of supraglottic or glottic mass. Normal subglottic airway. Thyroid gland is normal. Paranasal sinuses are well aerated. Mastoid air cells are well aerated. Mild spondylitic changes cervical spine worse at C5-6. No cervical lymphadenopathy. Scattered normal-sized cervical lymph nodes similar to previous. CT/CT neck w con* [id number] IMPRESSION: 1. No suspicious abnormalities deep to the BB in the RIGHT lower neck. Normal underlying soft tissues. 2. No acute neck findings.
[2025-03-16] MEDS: iohexol 350 mg/mL 500 mL Btl (per mL) IV (16:01)
== END 2025-03-16 15:16 | disposition home or self-care (01) ==
LOC: RAD 15:15
PROVIDERS: PCP Nurse Practitioner; Visit Provider Nurse Practitioner Family
DX: K11.22 Acute recurrent sialoadenitis (principal); M47.812 Spondylosis without myelopathy or radiculopathy, cervical region
CPT/HCPCS: 70491